=== PATIENT | female | born 1940 | race Caucasian/White ===

== ENCOUNTER → 2016-09-02 | Outpatient (CLI) | payer MEDICARE, BC ==
[~2016-09-02] MED LIST: AMLO5TAB96 PO; ESTR.3 PO; IBUP200C PO; LORA-392 PO; TAB-TAB; TIZA2TAB PO; TRAV0.006 EACH EYE; VITA100017 PO
[2016-09-02 16:28] LABS: BLOOD, URINE NEG (NEG); COMMENT (UR) CULT NOT INDICATED; CULTURE IF INDICATED CULT NOT INDICATED; GLUCOSE,URINE NEG (NEG); KETONE, URINE NEG (NEG); MUCUS URINE FEW /lpf (OCC); NITRITE,URINE NEG (NEG); PH, URINE 7.5 (5.0-8.5); SQUAMOUS EPITHELIAL CELL URINE <1 /hpf (0-5); URINE COLOR YELLOW (YELLW/STRAW)
[2016-09-02 16:35] LABS: AUTOMATED NEUTROPHIL # 3.3 TH/MM3 (1.8-7.7); BASOPHIL % 0.8 % (0.0-2.0); EOSINOPHIL # 0.1 TH/MM3 (0-0.4); EOSINOPHIL % 1.6 % (0.0-4.0); HEMATOCRIT 38.8 % (35.0-46.0); HEMO FLAGS DIFF FINAL; LYMPH % 30.5 % (9.0-44.0); LYMPHOCYTE # 1.7 TH/MM3 (1.0-4.8); MEAN CELL VOLUME 90.8 FL (80.0-100.0); MEAN CORPUSCULAR HEMOGLOBIN 30.7 PG (27.0-34.0); MEAN CORPUSCULAR HGB CONC 33.8 % (32.0-36.0); MONO % 8.4 % (0.0-8.0); NEUT % 58.7 % (16.0-70.0); PLATELET COUNT 212 TH/MM3 (150-450); RED BLOOD COUNT 4.27 MIL/MM3 (4.00-5.30); RED CELL DISTRIBUTION WIDTH 13.2 % (11.6-17.2); WHITE BLOOD COUNT 5.6 TH/MM3 (4.0-11.0)
[2016-09-02 16:52] LABS: ANION GAP 5 MEQ/L (5-15); BICARBONATE 34.8 MEQ/L (21.0-32.0); BLOOD UREA NITROGEN 16 MG/DL (7-18); CHLORIDE 98 MEQ/L (98-107); POTASSIUM 4.1 MEQ/L (3.5-5.1); RHEUMATOID FACTOR TRIGGER LESS THAN 10.0 IU/ML (0.0-14.9); SODIUM (NA) 138 MEQ/L (136-145)
[2016-09-02 17:41] LABS: ALKALINE PHOSPHATASE 91 U/L (45-117); ALT (GPT) 29 U/L (10-53); AST (GOT) 23 U/L (15-37); GLOMERULAR FILTRATION RATE 120 ML/MIN (>89); GLUCOSE,FASTING 85 MG/DL (74-99); HDL CHOLESTEROL 112.6 MG/DL (40.0-60.0); LDL CHOLESTEROL 78 MG/DL (0-99); TOTAL BILIRUBIN ADULT 0.5 MG/DL (0.2-1.0)
[2016-09-02 17:48] LABS: WESTERGREN SEDIMENTATION RATE 44 mm/hr (0-30)
== END ==
LOC: PLAB 11:35
PROVIDERS: ATTEND Internal Medicine
DX: M31.6 Other giant cell arteritis (principal); I10 Essential (primary) hypertension; E78.5 Hyperlipidemia, unspecified; E53.8 Deficiency of other specified B group vitamins; E55.9 Vitamin D deficiency, unspecified; M06.9 Rheumatoid arthritis, unspecified
CPT/HCPCS: 36415; 80053; 80061; 81001; 82306; 82607; 84443; 85025; 85652; 86430

== ENCOUNTER → 2017-08-04 | Outpatient (CLI) | payer MEDICARE, BC ==
[~2017-08-04] MED LIST changes: +AMLO5 PO; +CART1SOL EACH EYE; +LORA0.5T PO; +MELO7.5T27 PO; +TRAV0.00 EACH EYE
[2017-08-04 12:49] LABS: AUTOMATED NEUTROPHIL # 3.9 TH/MM3 (1.8-7.7); BASOPHIL # 0.1 TH/MM3 (0-0.2); BASOPHIL % 0.9 % (0.0-2.0); EOSINOPHIL # 0.1 TH/MM3 (0-0.4); EOSINOPHIL % 2.3 % (0.0-4.0); HEMATOCRIT 36.7 % (35.0-46.0); HEMO FLAGS DIFF FINAL; LYMPH % 24.2 % (9.0-44.0); LYMPHOCYTE # 1.5 TH/MM3 (1.0-4.8); MEAN CELL VOLUME 90.8 FL (80.0-100.0); MEAN CORPUSCULAR HEMOGLOBIN 30.5 PG (27.0-34.0); MEAN CORPUSCULAR HGB CONC 33.5 % (32.0-36.0); NEUT % 64.6 % (16.0-70.0); PLATELET COUNT 207 TH/MM3 (150-450); RED BLOOD COUNT 4.05 MIL/MM3 (4.00-5.30); RED CELL DISTRIBUTION WIDTH 13.8 % (11.6-17.2)
[2017-08-04 12:53] LABS: APTT (PATIENT) 23.9 SEC (24.3-30.1); INTERNATIONAL NORMALIZED RATIO 0.9 RATIO; PROTHROMBIN TIME - PATIENT 9.6 SEC (9.8-11.6)
[2017-08-04 13:18] LABS: ANION GAP 6 MEQ/L (5-15); AST (GOT) 24 U/L (15-37); BICARBONATE 31.4 MEQ/L (21.0-32.0); BLOOD UREA NITROGEN 15 MG/DL (7-18); CHLORIDE 97 MEQ/L (98-107); GLOMERULAR FILTRATION RATE 194 ML/MIN (>89); GLUCOSE,FASTING 85 MG/DL (74-99); POTASSIUM 4.4 MEQ/L (3.5-5.1); SODIUM (NA) 134 MEQ/L (136-145)
[2017-08-04 13:19] LABS: ALT (GPT) 25 U/L (10-53)
[2017-08-04 13:21] LABS: ALKALINE PHOSPHATASE 91 U/L (45-117); TOTAL BILIRUBIN ADULT 0.3 MG/DL (0.2-1.0)
[2017-08-04 13:23] LABS: WESTERGREN SEDIMENTATION RATE 36 mm/hr (0-30)
--- NOTE | 2017-08-04 13:38 | RADRPT ---
EXAM DATE/TIME: 08/04/2017 13:21 [facility] COMPARISON: No previous studies available for comparison. INDICATIONS : Evaluate for pneumothorax, pneumonia and communicable. Pre-op for total hip surgery. MEDICAL HISTORY : Hypertension. Carcinoma, breast. SURGICAL HISTORY : Mastectomy, right. Marino noreen. ENCOUNTER: Initial ACUITY: 1 day PAIN SCORE: 0/10 LOCATION: Bilateral chest FINDINGS: Marino noreen. The lungs are hyperinflated but clear. Hardware intact. The heart and pulmonary va scularity are normal. Scoliosis on the order of 85. Nipple shadow left base CONCLUSION: Extensive scoliosis compromising right lung item. Amrik Montes MD FACR on August 04, 2017 at 13:34 Board Certified Radiologist. This report was verified electronically.
[2017-08-04 14:59] LABS: BACTERIA, URINE RARE /hpf; BLOOD, URINE NEG (NEG); COMMENT (UR) CULT NOT INDICATED; CULTURE IF INDICATED CULT NOT INDICATED; GLUCOSE,URINE NEG (NEG); KETONE, URINE NEG (NEG); NITRITE,URINE NEG (NEG); SQUAMOUS EPITHELIAL CELL URINE 1 /hpf (0-5); URINE COLOR LIGHT-YELLOW (YELLW/STRAW)
--- NOTE | 2017-08-05 12:40 | EKG ---
Date Performed: 08/04/2017 Time Performed: 12:13:06 PTAGE: 76 years EKG: Sinus rhythm Possible left atrial abnormality Poor R wave progression - probable normal variant Septal ST-T fong es are nonspecific Borderline ECG PREVIOUS TRACING : 07/28/2013 22.55 Since previous tracing, no significant change noted DOCTOR: Eyal Méndez Interpretating Date/Time 08/05/2017 12:38:52
== END ==
LOC: CPRE 11:39
PROVIDERS: ATTEND Orthopaedic Surgery Sports Medicine
DX: Z01.810 Encounter for preprocedural cardiovascular examination (principal); Z01.811 Encounter for preprocedural respiratory examination; Z01.812 Encounter for preprocedural laboratory examination; Z01.818 Encounter for other preprocedural examination; M16.11 Unilateral primary osteoarthritis, right hip; R94.31 Abnormal electrocardiogram [ECG] [EKG]
CPT/HCPCS: 36415; 71020; 80053; 81001; 85025; 85610; 85652; 85730; 93005

== ENCOUNTER → 2017-08-25 | Day surgery (SDC) | payer MEDICARE, BC ==
[~2017-08-25] VITALS: Ht 137.2 cm; Wt 41.7 kg
[~2017-08-25] MED LIST changes: -AMLO5TAB96 PO; +CLINDAMYCIN 900 MG/NS 100 ML IV SCH; +DEXAMETHASONE SOD PHOS 20 MG/5 ML VIAL IV SCH; -ESTR.3 PO; +EXPAREL PERI-ARTICULAR INJECTION (TOTAL VOL. 60 ML) P-ARTICULR SCH; +GENTAMICIN SULFATE 80 MG/2 ML VIAL ONE; -IBUP200C PO; +LACTATED RINGER'S 1000 ML IV PRN; -LORA-392 PO; +METOPROLOL TARTRATE 25 MG TAB PO PRN; +SODIUM CHLORID 0.9% 500 ML IV PRN; +SODIUM CHLORIDE 0.9% IV SCH; -TAB-TAB; -TIZA2TAB PO; +TRANEXAMIC ACID IV SCH; +TRANEXAMIC PERI-ARTICULAR 3,000 MG/NS 100 ML P-ARTICULR SCH; -TRAV0.006 EACH EYE; +VANCOMYCIN 1000 MG/NS 250 ML (for <70 kg) IV SCH; -VITA100017 PO
[2017-08-25 06:10] VITALS: BP 155/86; PULSE 86; RESP 16; TEMP 98.5; O2SAT 99
== END | disposition home or self-care (01) ==
LOC: UNDOADMIN 05:26 → HSDI 05:26 → HSDC 05:26 → HSDI 05:26 → EDSTATUS 07:00
PROVIDERS: ATTEND Orthopaedic Surgery Sports Medicine
DX: M16.11 Unilateral primary osteoarthritis, right hip (principal); Z53.09 Procedure and treatment not carried out because of other contraindication
CPT/HCPCS: C9290; G0463; 99211; J1580

== ENCOUNTER → 2017-09-05 | Outpatient (CLI) | payer MEDICARE, BC ==
[~2017-09-05] MED LIST changes: +AMBI10TA PO; +ASPI81CH6 CHEW; -CLINDAMYCIN 900 MG/NS 100 ML IV SCH; +COMMODE 3-IN-11 MIS; -DEXAMETHASONE SOD PHOS 20 MG/5 ML VIAL IV SCH; -EXPAREL PERI-ARTICULAR INJECTION (TOTAL VOL. 60 ML) P-ARTICULR SCH; -GENTAMICIN SULFATE 80 MG/2 ML VIAL ONE; +HYDR-3288 PO; -LACTATED RINGER'S 1000 ML IV PRN; -METOPROLOL TARTRATE 25 MG TAB PO PRN; -SODIUM CHLORID 0.9% 500 ML IV PRN; -SODIUM CHLORIDE 0.9% IV SCH; -TRANEXAMIC ACID IV SCH; -TRANEXAMIC PERI-ARTICULAR 3,000 MG/NS 100 ML P-ARTICULR SCH; -VANCOMYCIN 1000 MG/NS 250 ML (for <70 kg) IV SCH
[2017-09-05 11:18] LABS: AUTOMATED NEUTROPHIL # 4.4 TH/MM3 (1.8-7.7); BASOPHIL # 0.1 TH/MM3 (0-0.2); BASOPHIL % 0.8 % (0.0-2.0); EOSINOPHIL # 0.1 TH/MM3 (0-0.4); EOSINOPHIL % 1.7 % (0.0-4.0); HEMATOCRIT 37.1 % (35.0-46.0); HEMOGLOBIN 12.2 GM/DL (11.6-15.3); LYMPH % 22.4 % (9.0-44.0); LYMPHOCYTE # 1.4 TH/MM3 (1.0-4.8); MEAN CELL VOLUME 91.5 FL (80.0-100.0); MEAN CORPUSCULAR HGB CONC 32.8 % (32.0-36.0); MEAN PLATELET VOLUME 10.1 FL (7.0-11.0); MONO % 7.3 % (0.0-8.0); MONOCYTE # 0.5 TH/MM3 (0-0.9); NEUT % 67.8 % (16.0-70.0); PLATELET COUNT 192 TH/MM3 (150-450); RED BLOOD COUNT 4.06 MIL/MM3 (4.00-5.30); RED CELL DISTRIBUTION WIDTH 13.8 % (11.6-17.2); WHITE BLOOD COUNT 6.5 TH/MM3 (4.0-11.0)
[2017-09-05 11:26] LABS: PROTHROMBIN TIME - PATIENT 9.8 SEC (9.8-11.6)
[2017-09-05 11:34] LABS: WESTERGREN SEDIMENTATION RATE 28 mm/hr (0-30)
[2017-09-05 11:53] LABS: ALBUMIN 3.6 GM/DL (3.4-5.0); AST (GOT) 23 U/L (15-37); BICARBONATE 32.1 MEQ/L (21.0-32.0); BLOOD UREA NITROGEN 13 MG/DL (7-18); CALCIUM 9.6 MG/DL (8.5-10.1); CHLORIDE 98 MEQ/L (98-107); CREATININE 0.32 MG/DL (0.50-1.00); GLOMERULAR FILTRATION RATE 201 ML/MIN (>89); GLUCOSE,FASTING 77 MG/DL (74-99); SODIUM (NA) 136 MEQ/L (136-145)
[2017-09-05 11:54] LABS: ALT (GPT) 25 U/L (10-53)
[2017-09-05 11:56] LABS: ALKALINE PHOSPHATASE 101 U/L (45-117); TOTAL BILIRUBIN ADULT 0.5 MG/DL (0.2-1.0); TOTAL PROTEIN 7.6 GM/DL (6.4-8.2)
[2017-09-05 12:33] LABS: BILIRUBIN, URINE NEG (NEG); BLOOD, URINE NEG (NEG); GLUCOSE,URINE NEG (NEG); KETONE, URINE NEG (NEG); MUCUS URINE FEW /lpf (OCC); NITRITE,URINE NEG (NEG); SQUAMOUS EPITHELIAL CELL URINE 2 /hpf (0-5); URINE COLOR LIGHT-YELLOW (YELLW/STRAW); URINE LEUKOCYTE ESTERASE NEG (NEG)
== END ==
LOC: CPRE 10:27
PROVIDERS: ATTEND Orthopaedic Surgery Sports Medicine
DX: Z01.812 Encounter for preprocedural laboratory examination (principal); Z01.818 Encounter for other preprocedural examination; M25.50 Pain in unspecified joint; M16.11 Unilateral primary osteoarthritis, right hip; Z96.60 Presence of unspecified orthopedic joint implant; Z79.01 Long term (current) use of anticoagulants
CPT/HCPCS: 36415; 80053; 81001; 85025; 85610; 85652; 85730

== ENCOUNTER 2017-09-17 10:17 | Inpatient (IN) | payer MEDICARE, BC ==
[~2017-09-17] VITALS: Ht 137.2 cm; Wt 42.5 kg
[~2017-09-17 10:17] MED LIST changes: -AMBI10TA PO; -ASPI81CH6 CHEW; -COMMODE 3-IN-11 MIS; -HYDR-3288 PO
[2017-09-17] MEDS ORDERED: LACTATED RINGER'S 1000 ML IV PRN (11:15)
[2017-09-17] MEDS ORDERED: METOPROLOL TARTRATE 25 MG TAB PO PRN (11:15)
[2017-09-17] MEDS ORDERED: SODIUM CHLORID 0.9% 500 ML IV PRN (11:15)
[2017-09-17] MEDS ORDERED: CHLORHEXIDINE GLUCONATE 4% SOLN 120 ML BTL TOPICAL SCH (11:15)
[2017-09-17] MEDS ORDERED: CLINDAMYCIN 900 MG/NS PREMIX 50 ML IV SCH (11:30)
[2017-09-17] MEDS ORDERED: VANCOMYCIN 1 GM/200 ML PREMIX ON-CALL IV SCH (11:30)
[2017-09-17] MEDS ORDERED: DEXAMETHASONE SOD PHOS 20 MG/5 ML VIAL IV SCH (11:30)
[2017-09-17] MEDS ORDERED: TRANEXAMIC ACID IV SCH (12:00)
[2017-09-17] MEDS ORDERED: LACTATED RINGER'S 1000 ML INJ 1,000 ML IV ONE (12:00)
[2017-09-17] MEDS ORDERED: PROPOFOL 200 MG/20 ML AMP IV ONE (12:00)
[2017-09-17] MEDS ORDERED: ROCURONIUM INJ 50 MG/5 ML SYRINGE IV PUSH ONE (12:00)
[2017-09-17] MEDS ORDERED: GLYCOPYRROLATE 1 MG/5 ML SYRINGE IV PUSH ONE (12:00)
[2017-09-17] MEDS ORDERED: PHENYLEPH/NS 1000 MCG/10 ML SYR IV ONE (12:00)
[2017-09-17] MEDS ORDERED: SODIUM CHLORIDE 0.9% IV SCH (12:00)
[2017-09-17] MEDS ORDERED: EXPAREL PERI-ARTICULAR INJECTION (TOTAL VOL. 60 ML) P-ARTICULR SCH ×2 (12:00)
[2017-09-17] MEDS ORDERED: NEOSTIGMINE 5 MG/5 ML SYRINGE IV PUSH ONE (12:00)
[2017-09-17] MEDS ORDERED: ONDANSETRON HCL 4 MG/2 ML VIAL IV ONE (12:00)
[2017-09-17] MEDS ORDERED: LIDOCAINE HCL 1% PF 5 ML SYRINGE OTHER ONE (12:00)
[2017-09-17] MEDS ORDERED: TRANEXAMIC PERI-ARTICULAR 3,000 MG/NS 100 ML P-ARTICULR SCH ×2 (12:00)
[2017-09-17] MEDS ORDERED: GENTAMICIN SULFATE 80 MG/2 ML VIAL ONE ×2 (13:49)
[2017-09-17] MEDS ORDERED: BISACODYL 10 MG SUPP RECTAL PRN (15:00)
[2017-09-17] MEDS ORDERED: ONDANSETRON HCL 4 MG/2 ML VIAL IVP PRN (15:00)
[2017-09-17] MEDS ORDERED: ZOLPIDEM TARTRATE 5 MG TAB PO PRN (15:00)
[2017-09-17] MEDS ORDERED: ACETAMINOPHEN/HYDROcodone 325 MG/10 MG TAB PO PRN (15:00)
[2017-09-17] MEDS ORDERED: diphenhydrAMINE HCL 50 MG/ML VIAL IV PUSH PRN (15:00)
[2017-09-17] MEDS ORDERED: HYDR-3288 PO (15:00)
[2017-09-17] MEDS ORDERED: Post-op Orders (for Pharmacy) XX ONE (15:00)
[2017-09-17] MEDS ORDERED: ASPI81CH6 CHEW (15:01)
[2017-09-17] MEDS ORDERED: DO NOT ADM ANY ANTICOAGULANT DRUGS PRN (17:22)
[2017-09-17] MEDS: SODIUM CHLOR 0.9% 1000 ML INJ 1,000 ML IV SCH (17:30)
[2017-09-17] MEDS ORDERED: *morphine SULFATE 4 MG/ML PERIprocedure ONLY ONE ×2 (17:35→17:56)
--- NOTE | 2017-09-17 17:43 | RADRPT ---
EXAM DATE/TIME: 09/17/2017 15:31 [facility] COMPARISON: No previous studies available for comparison. INDICATIONS : Right total hip arthroplasty. MEDICAL HISTORY : None. SURGICAL HISTORY : None. ENCOUNTER: Subsequent ACUITY: 1 day PAIN SCORE: Non-responsive. LOCATION: Right Hip FINDINGS: Multiple coned down views of the right hip and femur were obtained these images abdomen demonstrate t he patient is status post arthroplasty. The femoral acetabular components are intact and in normal al ignment. CONCLUSION: Expected postoperative changes status post arthroplasty. Jose Shrestha MD on September 17, 2017 at 17:39 Board Certified Radiologist. This report was verified electronically.
--- NOTE | 2017-09-17 17:55 | RADRPT ---
EXAM DATE/TIME: 09/17/2017 17:33 [facility] COMPARISON: No previous studies available for comparison. INDICATIONS : Status post total right hip arthroplasty. MEDICAL HISTORY : None. SURGICAL HISTORY : None. ENCOUNTER: Subsequent ACUITY: 1 day PAIN SCORE: Non-responsive. LOCATION: Right Hip FINDINGS: AP and crosstable lateral views of the right hip was obtained as well as an AP view of the pelvis. Th is demonstrates the patient status post right hip arthroplasty. The femoral and acetabular components are intact and in normal alignment. There is overlying soft tissue swelling and gas bubbles. There i s mild osteopenia. CONCLUSION: Expected postoperative change status post arthroplasty. Jose Shrestha MD on September 17, 2017 at 17:51 Board Certified Radiologist. This report was verified electronically.
--- NOTE | 2017-09-17 17:56 | PD.CONS ---
[facility] By Dr. Salcedo Reason for Consult Medical management Primary Care Physician Non-Staff Diagnoses: (1) Hypertension (2) Anxiety (3) Primary localized osteoarthrosis, pelvic region and thigh History of Present Illness 76 Y/O female with a medical history significant for HTN, anxiety, breast cancer and osteoarthritis admitted for right hip arthroplasty. Apparently the patient failed conservative measures. Patient is seen post operatively and most of the history obtained from the chart. She currently reports discomfort at the surgical site. No other complaints. Records reviewed extensively. She has active breast cancer and was seen by Oncologist recently who recommended chemo and radiation. Patient is choosing to deal with the hip replacement first. She was also considering natural measures to treat her breast cancer. No other active issues prior to Hospitalization. Review of Systems ROS Limitations: Clinical Condition Musculoskeletal: COMPLAINS OF: Joint pain Except as stated in HPI: all other systems reviewed are Neg Past Family Social History Allergies: Coded Allergies: diatrizoate meglumine (Verified Allergy, Severe, HIVES, 09/05/17) gadobenic acid (Verified Allergy, Severe, HIVES, 09/05/17) gadodiamide (Verified Allergy, Severe, HIVES, 09/05/17) gadoteridol (Verified Allergy, Severe, HIVES, 09/05/17) iodixanol (Verified Allergy, Severe, HIVES, 09/05/17) iohexol (Verified Allergy, Severe, HIVES, 09/05/17) penicillin G (Verified Allergy, Severe, Hives, 09/05/17) iodine (Verified Allergy, Mild, Hives, 09/05/17) potassium iodide (Verified Allergy, Mild, Hives, 09/05/17) povidone-iodine (Verified Allergy, Mild, Hives, 09/05/17) sodium iodide (Verified Allergy, Mild, Hives, 09/05/17) adhesive tape (Verified Allergy, Unknown, MUST USE PAPER TAPE, CAUSES REDNESS ALMOST INSTANTLY, 08/04/17) Past Medical History HTN, anxiety, breast cancer and osteoarthritis Past Surgical History breast biopsy lumpectomy Reported Medications Reported Meds & Active Scripts Active Aspirin Low Dose (Aspirin) 81 Mg Chew 81 Mg CHEW BID 30 Days Mclean (Hydrocodone-Acetaminophen) 7.5-325 mg Tab 1-2 Tab PO Q6H PRN Reported Meloxicam 7.5 Mg Tab 7.5 Mg PO DAILY Travatan Z Opth Drops (Travoprost) 0.004 % Soln 1 Drop EACH EYE HS Carteolol Opth Drops 1% Soln 1 Drop EACH EYE DAILY Norvasc (Amlodipine Besylate) 5 Mg Tab 5 Mg PO HS Lorazepam 0.5 Mg Tab 0.5 Mg PO DAILY PRN Family History Discussed. Noncontributory Social History No tobacco. Occasional alcohol. Physical Exam Vital Signs Vital Signs Date Time Temp Pulse Resp B/P (MAP) Pulse Ox O2 Delivery O2 Flow Rate FiO2 09/17/17 17:22 97.6 72 12 101/52 (68) 100 Nasal Cannula 4 09/17/17 11:15 97.6 78 20 153/81 (105) 99 Physical Exam GENERAL: This is a well-nourished, well-developed patient, in no apparent distress. SKIN: No rashes, ecchymoses or lesions. Cool and dry. HEAD: Atraumatic. Normocephalic. No temporal or scalp tenderness. EYES: Pupils equal round and reactive. Extraocular motions intact. No scleral icterus. No injection or drainage. ENT: Nose without bleeding, purulent drainage or septal hematoma. Throat without erythema, tonsillar hypertrophy or exudate. Uvula midline. Airway patent. NECK: Trachea midline. No JVD or lymphadenopathy. Supple, nontender, no meningeal signs. CARDIOVASCULAR: Regular rate and rhythm without murmurs, gallops, or rubs. RESPIRATORY: Clear to auscultation. Breath sounds equal bilaterally. No wheezes , rales, or rhonchi. GASTROINTESTINAL: Abdomen soft, non-tender, nondistended. No hepato-splenomegaly , or palpable masses. No guarding. MUSCULOSKELETAL: Extremities without clubbing, cyanosis, or edema. No joint tenderness, effusion, or edema noted. No calf tenderness. Negative Homans sign bilaterally. NEUROLOGICAL: Awake and alert. Cranial nerves II through XII intact. Motor and sensory grossly within normal limits. Five out of 5 muscle strength in all muscle groups. Normal speech. Imaging Last Impressions Hip and Pelvis X-Ray 09/17/17 0000 Signed Impressions: Service Date/Time: Sunday, September 17, 2017 17:33 - CONCLUSION: Expected postoperative change status post arthroplasty. Jose Shrestha MD Hip X-Ray 09/17/17 0000 Signed Impressions: Service Date/Time: Sunday, September 17, 2017 15:31 - CONCLUSION: Expected postoperative changes status post arthroplasty. Jose Shrestha MD Assessment and Plan Problem List: (1) S/P total hip arthroplasty ICD Code: Z96.649 - Presence of unspecified artificial hip joint Plan: Post op care per orthopedics pain control early mobilization as tolerated (2) Hypertension ICD Code: I10 - Essential (primary) hypertension Plan: Continue Amlodipine Monitor bp (3) Primary localized osteoarthrosis, pelvic region and thigh ICD Code: M16.10 - Unilateral primary osteoarthritis, unspecified hip (4) Anxiety ICD Code: F41.9 - Anxiety disorder, unspecified Plan: Ativan PRN (5) Glaucoma ICD Code: H40.9 - Unspecified glaucoma Plan: continue eye drops Problem Qualifiers (1) S/P total hip arthroplasty: Qualified Codes: Z96.641 - Presence of right artificial hip joint Yenni Amin MD Sep 17, 2017 17:56
[2017-09-17 19:00] VITALS: BP 135/67; PULSE 72; RESP 18; TEMP 96.7; O2SAT 99
[2017-09-17] MEDS: amLODIPine BESYLATE 5 MG TAB PO SCH (21:20)
[2017-09-17] MEDS: [UNRECOGNIZED DRUG - OTHER] EACH EYE SCH (21:22)
[2017-09-17] MEDS: LATANOPROST 0.005% OPHT SOLN 2.5 ML BTL EACH EYE SCH (21:22)
[2017-09-17] MEDS: LORazepam 0.5 MG TAB PO PRN (21:34)
[2017-09-18] VITALS (7 sets, daily range): BP systolic 99–141; BP diastolic 51–72; PULSE 74–101; RESP 17–18; TEMP 96.8–98.8; O2SAT 90–98
[2017-09-18] MEDS: MORPHINE SULFATE 4 MG/ML INJ IV PUSH PRN ×2 (01:58→06:42)
[2017-09-18] MEDS: SODIUM CHLOR 0.9% 1000 ML INJ 1,000 ML IV SCH ×3 (02:03→21:30)
[2017-09-18 06:57] LABS: HEMATOCRIT 23.7 % (35.0-46.0); HEMOGLOBIN 8.1 GM/DL (11.6-15.3); MEAN CELL VOLUME 90.2 FL (80.0-100.0); MEAN CORPUSCULAR HEMOGLOBIN 30.7 PG (27.0-34.0); MEAN CORPUSCULAR HGB CONC 34.1 % (32.0-36.0); PLATELET COUNT 144 TH/MM3 (150-450); RED BLOOD COUNT 2.63 MIL/MM3 (4.00-5.30); RED CELL DISTRIBUTION WIDTH 13.7 % (11.6-17.2); WHITE BLOOD COUNT 8.2 TH/MM3 (4.0-11.0)
[2017-09-18 07:23] LABS: BICARBONATE 28.5 MEQ/L (21.0-32.0); CALCIUM 8.6 MG/DL (8.5-10.1); CREATININE 0.34 MG/DL (0.50-1.00)
--- NOTE | 2017-09-18 08:06 | PD.ORT.PN ---
Subjective Post Op Day #: 1 Subjective Remarks still painful. Objective Vitals Vital Signs Date Time Temp Pulse Resp B/P (MAP) Pulse Ox O2 Delivery O2 Flow Rate FiO2 09/18/17 06:26 98.6 87 18 141/71 (94) 98 09/18/17 00:10 96.8 86 17 111/64 (80) 97 09/17/17 19:00 96.7 72 18 135/67 (89) 99 09/17/17 18:45 97.6 70 12 125/58 (80) 100 Nasal Cannula 2 09/17/17 18:30 73 12 123/58 (79) 100 Nasal Cannula 2 09/17/17 18:15 71 12 123/56 (78) 100 Nasal Cannula 2 09/17/17 18:00 70 12 124/58 (80) 100 Nasal Cannula 4 09/17/17 17:45 72 12 125/58 (80) 100 Nasal Cannula 4 09/17/17 17:30 72 12 110/55 (73) 100 Nasal Cannula 4 09/17/17 17:22 97.6 72 12 101/52 (68) 100 Nasal Cannula 4 09/17/17 11:15 97.6 78 20 153/81 (105) 99 I/O 09/17/17 09/17/17 09/17/17 09/18/17 09/18/17 09/18/17 07:00 15:00 23:00 07:00 15:00 23:00 Intake Total 1940 ml 2722 ml Output Total 300 ml Balance 1640 ml 2722 ml Intake Oral 240 ml 360 ml IV Total 2362 ml Other 1700 ml Output Estimated Blood Loss 300 ml # Voids 2 2 1 # Bowel Movements 0 0 Result Diagram: 09/18/17 0558 09/18/17 0558 Objective Remarks in bed, nad, daughter in room dressing c/d/i thigh soft neg homans nvi Assessment & Plan Ortho Post Op Day #: 1 Problem List: Assessment and Plan s/p R ANALY anterior approach wbat ok to maintain dressing unless saturated lovenox, d/c on asa81 anemia - monitor d/c planning home with hhc and pt - possibly Friday or Friday f/up dr. fernandez 2 weeks Ketan Sadler Sep 18, 2017 08:06
--- NOTE | 2017-09-18 08:08 | HHI.DCPOC ---
Discharge Care Plan Diagnosis: (1) Primary localized osteoarthrosis, pelvic region and thigh Your Health Problems Are: Difficulty with ADL Goals to Promote Your Health * To prevent worsening of your condition and complications * To maintain your health at the optimal level Directions to Meet Your Goals Take your medications as prescribed Follow your dietary instruction Follow activity as directed Keep your appointments as scheduled Take your immunizations and boosters as scheduled If your symptoms worsen call your PCP, if no PCP go to Urgent Care Center or Emergency Room Smoking is Dangerous to Your Health. Avoid second hand smoke Call the 24-hour hour crisis hotline for domestic abuse at Ketan Sadler Sep 18, 2017 08:08
--- NOTE | 2017-09-18 08:09 | HHI.FF ---
Face to Face Verification Diagnosis: (1) Primary localized osteoarthrosis, pelvic region and thigh Physical Therapy Gait training, Safety evaluation, Transfer training, bed to chair Hip: Total hip, Protocol: Right Right LE Weight Bearing: WB as tolerated Nursing RN: 3 days/week x 2 weeks Nursing: Dressing changes Dressing Changes: Daily dressing change Additional Instructions ok to maintain dressing unless saturated I have seen patient Malaika Morelos on 09/18/17. My clinical findings support the need for the requested home health care services because: Limited ability to care for self High risk of falls I certify that my clinical findings support that this patient is homebound because: Post-op weakness Unsteady gait/balance Ketan Sadler Sep 18, 2017 08:09
[2017-09-18] MEDS ORDERED: COMMODE 3-IN-11 MIS (08:10)
--- NOTE | 2017-09-18 09:31 | MP ---
cc: SUJATA ESPOSITO M.D. DATE OF SURGERY 09/17/2017 PREOPERATIVE DIAGNOSIS Right hip osteoarthritis POSTOPERATIVE DIAGNOSES Right hip osteoarthritis PROCEDURE Right total hip arthroplasty SURGEON Dr. Sujata Esposito PROP[employer]UALTY INSURANCE AGENT SIMBA Mims ANESTHESIA General ESTIMATED BLOOD LOSS 100 cc COMPLICATIONS None IMPLANTS USED DePuy Corail size 11 Press-Fit standard offset femoral stem, size 50 Malcom Gription cup size 32 mm, highly cross-linked polyethylene neutral liner, size 32 mm cobalt chrome head, +1 neck. JUSTIFICATION This patient is a 76-year-old female with a history of severe osteoarthritis involving the right hip. She has severe disabling pain with standing, walking, ambulation, weight-bearing activities and severe pain at rest. She has failed greater than three months of nonoperative conservative treatment to include medication therapy, injections, ambulatory assisted aids, home exercise size program, activity modification. The patient is not overweight. X-ray of the right hip reveal severe end-stage osteoarthritis with [id number] joint space narrowing and subchondral sclerosis, subchondral cyst, osteophyte formation, superior subluxation. The patient was counseled as to the risks, benefits and alternative to a total hip arthroplasty. The risks were discussed which include, but are not limited to anesthesia, bleeding, infection, damage to nerves, blood vessels, pain, stiffness, fracture-dislocation, leg length discrepancies, blood clots, pulmonary embolism and even . The patient's pain is severe. She favored the benefits over the risks. She did wish to proceed with surgery. PROCEDURE IN DETAIL A written consent was obtained. The patient identified by name, taken to the operating room, placed supine position and general anesthesia was administered, as well as 900 mg of IV clindamycin and 1 gram of IV vancomycin. She does have a penicillin allergy. The right and left feet were placed in the padded traction boots. The right hip and right lower tree prepped and draped using Isopropyl alcohol, Hibiclens solution and Chloraprep solution. After a time-out was performed, a longitudinal incision made over the anterolateral aspect of the right hip. The fascial layer was incised. Dissection was carried over the tensor fascia violeta and beneath rectus femoris to allow exposure of the anterior hip capsule. Capsulotomy incision was performed and the capsule was incised and tagged with #2 FiberWire suture. An oscillating saw was used to perform a femoral neck cut. The osteophytic femoral head neck component was removed. A 10 blade scalpel was used to excise the labrum. Sequential reaming began at size 43 and was carried through to size 50. Subsequently, a Malcom Gription size 50 cup was implanted in approximately 45 degrees of abduction and 10 degrees of anteversion. I felt as though I needed to supplement the Press-Fit cup with additional screw placement. At this point, a 30 mm screw and a 25 mm screw x 6.5 mm was placed in the posterior superior quadrant. There was adequate fixation and purchase after implantation of screws. The cup stability was tested manually and noted to have good stability. At this point, the neutral liner was placed within the cup. The liner was impacted in place and tested for stability. At this point, attention was turned to the femur where the leg was externally rotated, extended and adducted. The capsule was released off the undersurface of greater trochanter to allow for elevation and lateralization of the femur. A box cutting osteotome was used to gain entrance into the intramedullary canal of the femur. This was followed by a canal finder and sequential broaching up to size 11. A calcar planer was used to plane the calcar. Trial head and neck combinations were evaluated and final components implanted with the current components. The leg could achieve external rotation of 70 degrees and extension all the way down to the ground without evidence of anterior instability or impingement. Fluoroscopic imaging showed appropriate implantation of components. The surgical wound was thoroughly irrigated with sterile saline pulse lavage solution. The capsule layer was closed primarily with a combination of #2 FiberWire suture, as well as #1 Vicryl suture. The fascial layer was closed with a running #1 Vicryl suture, subcutaneous layer with 2-0 Vicryl suture, skin was closed with Dermabond. Sterile dressings were applied. The patient tolerated the procedure well with no intraoperative complications noted. Jose Sadler, Physician Pearl Maker Certified, was present during the entire procedure to include patient positioning and the procedure itself. The medical necessity of a physician seismic survey assistant was indicated in this case due to the complexity of the procedure. He assisted with appropriate manipulation of the leg and also retraction of muscle, tendon, bone and neurovascular structures. He assisted with preparation of the bone and also implantation of the prosthetic replacement. MD MESERET Arellano/EMELINA /5:02 PM /9:13 AM
[2017-09-18] MEDS: ACETAMINOPHEN/HYDROcodone 325 MG/10 MG TAB PO PRN ×3 (10:07→23:48)
--- NOTE | 2017-09-18 14:32 | HHI.PR ---
Subjective Remarks Patient reports feeling very tired. Sore at surgical site. No other complaints. Objective Vitals Vital Signs Date Time Temp Pulse Resp B/P (MAP) Pulse Ox O2 Delivery O2 Flow Rate FiO2 09/18/17 11:57 98.8 99 17 123/63 (83) 90 09/18/17 08:00 98.4 101 17 115/57 (76) 92 09/18/17 06:26 98.6 87 18 141/71 (94) 98 09/18/17 00:10 96.8 86 17 111/64 (80) 97 09/17/17 19:00 96.7 72 18 135/67 (89) 99 09/17/17 18:45 97.6 70 12 125/58 (80) 100 Nasal Cannula 2 09/17/17 18:30 73 12 123/58 (79) 100 Nasal Cannula 2 09/17/17 18:15 71 12 123/56 (78) 100 Nasal Cannula 2 09/17/17 18:00 70 12 124/58 (80) 100 Nasal Cannula 4 09/17/17 17:45 72 12 125/58 (80) 100 Nasal Cannula 4 09/17/17 17:30 72 12 110/55 (73) 100 Nasal Cannula 4 09/17/17 17:22 97.6 72 12 101/52 (68) 100 Nasal Cannula 4 I/O 09/17/17 09/17/17 09/17/17 09/18/17 09/18/17 09/18/17 07:00 15:00 23:00 07:00 15:00 23:00 Intake Total 1940 ml 2722 ml 100 ml Output Total 300 ml Balance 1640 ml 2722 ml 100 ml Intake Oral 240 ml 360 ml IV Total 2362 ml 100 ml Other 1700 ml Output Estimated Blood Loss 300 ml # Voids 2 2 1 # Bowel Movements 0 0 Result Diagram: 09/18/1758 09/18/17 0558 Objective Remarks GENERAL: No acute distress. CARDIOVASCULAR: Regular rate and rhythm. RESPIRATORY: No accessory muscle use. Clear to auscultation. Breath sounds equal bilaterally. GASTROINTESTINAL: Abdomen soft, non-tender, nondistended. MUSCULOSKELETAL: Right hip postop dressing mostly intact. A spec of serosanguineous drainage at the center. Right hip with some postsurgical swelling. Neurovascularly intact distally. NEUROLOGICAL: Awake and alert. No obvious cranial nerve deficits. Motor grossly within normal limits. Five out of 5 muscle strength in the arms and legs. Normal speech. PSYCHIATRIC: Appropriate mood and affect; insight and judgment normal. A/P Problem List: (1) S/P total hip arthroplasty ICD Code: Z96.649 - Presence of unspecified artificial hip joint Plan: Post op care per Orthopedics. (2) Hypertension ICD Code: I10 - Essential (primary) hypertension Plan: Continue Amlodipine. (3) Anxiety ICD Code: F41.9 - Anxiety disorder, unspecified Plan: Continue Ativan PRN. All questions answered to ease anxiety about Hospital stay. (4) Primary localized osteoarthrosis, pelvic region and thigh ICD Code: M16.10 - Unilateral primary osteoarthritis, unspecified hip (5) Anemia ICD Code: D64.9 - Anemia, unspecified Status: Acute Plan: Probably secondary to acute blood loss. 4 points drop in Hgb. Will repeat H&H today. Monitor closely. (6) Glaucoma ICD Code: H40.9 - Unspecified glaucoma (7) Breast cancer ICD Code: C50.919 - Malignant neoplasm of unspecified site of unspecified female breast Plan: DW patient and her daughter. They indicated she plans to return to Oncologist for treatment after she recovers. Encouraged the patient to make follow up appointment. Problem Qualifiers (1) S/P total hip arthroplasty: Qualified Codes: Z96.641 - Presence of right artificial hip joint (2) Anemia: Qualified Codes: D64.9 - Anemia, unspecified Yenni Amin MD Sep 18, 2017 14:32
[2017-09-18 14:59] LABS: HEMATOCRIT 26.3 % (35.0-46.0); HEMOGLOBIN 8.7 GM/DL (11.6-15.3); MEAN CELL VOLUME 91.3 FL (80.0-100.0); MEAN CORPUSCULAR HEMOGLOBIN 30.1 PG (27.0-34.0); MEAN PLATELET VOLUME 9.4 FL (7.0-11.0); PLATELET COUNT 164 TH/MM3 (150-450); RED BLOOD COUNT 2.88 MIL/MM3 (4.00-5.30); RED CELL DISTRIBUTION WIDTH 13.9 % (11.6-17.2); WHITE BLOOD COUNT 10.5 TH/MM3 (4.0-11.0)
[2017-09-18] MEDS: ENOXAPARIN SODIUM 30 MG/0.3 ML SYRINGE SQ SCH (16:31)
[2017-09-18] MEDS: LATANOPROST 0.005% OPHT SOLN 2.5 ML BTL EACH EYE SCH (21:00)
[2017-09-18] MEDS: amLODIPine BESYLATE 5 MG TAB PO SCH (21:28)
[2017-09-18] MEDS: MULTIVITAMINS/MINERALS THERAPEUTIC TAB PO SCH (21:28)
[2017-09-18] MEDS: DOCUSATE SODIUM 100 MG CAP PO SCH (21:28)
[2017-09-18] MEDS: LORazepam 0.5 MG TAB PO PRN (23:48)
[2017-09-19 08:00] VITALS: BP 109/68; PULSE 85; RESP 17; TEMP 97.9; O2SAT 93
[2017-09-19] MEDS: SODIUM CHLOR 0.9% 1000 ML INJ 1,000 ML IV SCH ×2 (08:00→17:53)
[2017-09-19] MEDS: DOCUSATE SODIUM 100 MG CAP PO SCH ×2 (08:20→21:59)
[2017-09-19 08:21] LABS: HEMATOCRIT 25.7 % (35.0-46.0); HEMOGLOBIN 8.5 GM/DL (11.6-15.3); MEAN CELL VOLUME 90.9 FL (80.0-100.0); MEAN PLATELET VOLUME 9.9 FL (7.0-11.0); PLATELET COUNT 138 TH/MM3 (150-450); RED BLOOD COUNT 2.83 MIL/MM3 (4.00-5.30); RED CELL DISTRIBUTION WIDTH 14.1 % (11.6-17.2); WHITE BLOOD COUNT 13.1 TH/MM3 (4.0-11.0)
[2017-09-19] MEDS: MULTIVITAMINS/MINERALS THERAPEUTIC TAB PO SCH ×2 (08:21→22:00)
[2017-09-19] MEDS: ACETAMINOPHEN/HYDROcodone 325 MG/10 MG TAB PO PRN ×4 (08:21→22:00)
[2017-09-19] MEDS: [UNRECOGNIZED DRUG - OTHER] EACH EYE SCH (08:23)
[2017-09-19 08:46] LABS: BICARBONATE 31.2 MEQ/L (21.0-32.0); CREATININE 0.37 MG/DL (0.50-1.00)
--- NOTE | 2017-09-19 09:28 | PD.ORT.PN ---
Subjective Post Op Day #: 2 Subjective Remarks still painful, but slowly improving. c/o knee pain. Objective Vitals Vital Signs Date Time Temp Pulse Resp B/P (MAP) Pulse Ox O2 Delivery O2 Flow Rate FiO2 09/19/17 08:00 97.9 85 17 109/68 (82) 93 09/19/17 06:58 Room Air 09/19/17 00:32 19 09/18/17 23:52 97.4 100 18 141/72 (95) 95 09/18/17 22:55 Room Air 09/18/17 20:32 98.2 74 17 115/65 (82) 96 09/18/17 16:00 98.3 98 17 99/51 (67) 93 09/18/17 11:57 98.8 99 17 123/63 (83) 90 I/O 09/18/17 09/18/17 09/18/17 09/19/17 09/19/17 09/19/17 07:00 15:00 23:00 07:00 15:00 23:00 Intake Total 2722 ml 580 ml 480 ml 480 ml Balance 2722 ml 580 ml 480 ml 480 ml Intake Oral 360 ml 480 ml 480 ml 480 ml IV Total 2362 ml 100 ml # Voids 1 2 3 2 # Bowel Movements 0 0 0 0 Result Diagram: 09/19/17 0748 09/19/17 0748 Objective Remarks in chair, nad, daughter in room dressing intact. small area of blood on mid dressing thigh soft neg homans nvi mild R knee swelling slight discomfort with flexion ROM 0-110 Assessment & Plan Ortho Post Op Day #: 2 Problem List: Assessment and Plan s/p R ANALY anterior approach POD#2 wbat ok to maintain dressing unless saturated R knee pain with mild swelling - xray R knee ordered lovenox, d/c on asa81 anemia stable - monitor d/c planning to snf [id number] signed f/up dr. fernandez 2 weeks Ketan Sadler Sep 19, 2017 09:28
--- NOTE | 2017-09-19 11:16 | RADRPT ---
EXAM DATE/TIME: 09/19/2017 10:05 [facility] COMPARISON: No previous studies available for comparison. INDICATIONS : Right knee pain. MEDICAL HISTORY : Hypertension. Carcinoma, breast. SURGICAL HISTORY : Mastectomy, right. Marino noreen. Total hip replacement on the right side. ENCOUNTER: Subsequent ACUITY: 3 days PAIN SCORE: 8/10 LOCATION: Right Knee. FINDINGS: A limited two-view examination of the right knee was obtained and demonstrates diffuse soft tissue pr ominence. There is mild osteopenia normal alignment. Chondrocalcinosis is noted in the medial and lat eral compartments. There is no acute fracture. CONCLUSION: 1. Diffuse soft tissue swelling 2. Osteopenia and mild degenerative change. Jose Shrestha MD on September 19, 2017 at 11:12 Board Certified Radiologist. This report was verified electronically.
[2017-09-19 12:00] VITALS: BP 102/55; PULSE 105; RESP 17; TEMP 98; O2SAT 92
--- NOTE | 2017-09-19 12:27 | HHI.PR ---
Subjective Remarks Patient reports she is feeling better today. No shortness of breath, lightheadedness, or heart palpitations. She was hoping to go home but admitted that she needs more assistance and is planning to go to rehabilitation. Objective Vitals Vital Signs Date Time Temp Pulse Resp B/P (MAP) Pulse Ox O2 Delivery O2 Flow Rate FiO2 09/19/17 08:00 97.9 85 17 109/68 (82) 93 09/19/17 06:58 Room Air 09/19/17 00:32 19 09/18/17 23:52 97.4 100 18 141/72 (95) 95 09/18/17 22:55 Room Air 09/18/17 20:32 98.2 74 17 115/65 (82) 96 09/18/17 16:00 98.3 98 17 99/51 (67) 93 I/O 09/18/17 09/18/17 09/18/17 09/19/17 09/19/17 09/19/17 07:00 15:00 23:00 07:00 15:00 23:00 Intake Total 2722 ml 580 ml 480 ml 480 ml Balance 2722 ml 580 ml 480 ml 480 ml Intake Oral 360 ml 480 ml 480 ml 480 ml IV Total 2362 ml 100 ml # Voids 1 2 3 2 # Bowel Movements 0 0 0 0 Result Diagram: 09/19/17 0748 09/19/17 0748 Objective Remarks GENERAL: No acute distress. CARDIOVASCULAR: Regular rate and rhythm. RESPIRATORY: No accessory muscle use. Clear to auscultation. Breath sounds equal bilaterally. GASTROINTESTINAL: Abdomen soft, non-tender, nondistended. MUSCULOSKELETAL: Right hip postop dressing mostly intact. A spec of serosanguineous drainage at the center. Right hip with some postsurgical swelling. Neurovascularly intact distally. NEUROLOGICAL: Awake and alert. No obvious cranial nerve deficits. Motor grossly within normal limits. Five out of 5 muscle strength in the arms and legs. Normal speech. PSYCHIATRIC: Appropriate mood and affect; insight and judgment normal. A/P Problem List: (1) S/P total hip arthroplasty ICD Code: Z96.649 - Presence of unspecified artificial hip joint Plan: Post op care per Orthopedics. (2) Hypertension ICD Code: I10 - Essential (primary) hypertension Plan: Continue Amlodipine. (3) Anxiety ICD Code: F41.9 - Anxiety disorder, unspecified Plan: Continue Ativan PRN. All questions answered to ease anxiety about Hospital stay. (4) Primary localized osteoarthrosis, pelvic region and thigh ICD Code: M16.10 - Unilateral primary osteoarthritis, unspecified hip (5) Anemia ICD Code: D64.9 - Anemia, unspecified Status: Acute Plan: Probably secondary to acute blood loss. Repeat H&H improving. Advised outpatient follow up. (6) Glaucoma ICD Code: H40.9 - Unspecified glaucoma (7) Breast cancer ICD Code: C50.919 - Malignant neoplasm of unspecified site of unspecified female breast Plan: DW patient and her daughter. They indicated she plans to return to Oncologist for treatment after she recovers. Encouraged the patient to make follow up appointment. Discharge Planning Hospitalist clear for discharge. Problem Qualifiers (1) S/P total hip arthroplasty: Qualified Codes: Z96.641 - Presence of right artificial hip joint (2) Anemia: Qualified Codes: D64.9 - Anemia, unspecified Yenni Amin MD Sep 19, 2017 12:27
[2017-09-19 16:00] VITALS: BP 113/59; PULSE 96; RESP 17; TEMP 98.1; O2SAT 94
[2017-09-19] MEDS: ENOXAPARIN SODIUM 30 MG/0.3 ML SYRINGE SQ SCH (16:26)
[2017-09-19 20:00] VITALS: BP 114/58; PULSE 99; RESP 16; TEMP 99.3; O2SAT 96
[2017-09-19] MEDS: LATANOPROST 0.005% OPHT SOLN 2.5 ML BTL EACH EYE SCH (21:00)
[2017-09-19] MEDS: CARTEOLOL 1% EACH EYE SCH (21:59)
[2017-09-19] MEDS: amLODIPine BESYLATE 5 MG TAB PO SCH (22:00)
[2017-09-20] VITALS: BP 133/68; PULSE 89; RESP 17; TEMP 99; O2SAT 96
[2017-09-20] MEDS: SODIUM CHLOR 0.9% 1000 ML INJ 1,000 ML IV SCH ×2 (03:01→10:23)
[2017-09-20 07:42] VITALS: BP 144/89; PULSE 115; RESP 18; TEMP 100.5; O2SAT 92
[2017-09-20] MEDS: DOCUSATE SODIUM 100 MG CAP PO SCH (08:31)
[2017-09-20] MEDS: MULTIVITAMINS/MINERALS THERAPEUTIC TAB PO SCH (08:31)
[2017-09-20] MEDS: ACETAMINOPHEN/HYDROcodone 325 MG/10 MG TAB PO PRN ×2 (08:32→15:58)
[2017-09-20] MEDS: CARTEOLOL 1% EACH EYE SCH (08:42)
[2017-09-20 09:43] VITALS: TEMP 98
--- NOTE | 2017-09-20 09:49 | PD.ORT.PN ---
Subjective Post Op Day #: 3 Subjective Remarks Patient is OOB in chair with minimal pain to the right knee. Moderate pain to the right hip. Patient ambulatory. Denies CP, SOB, or tingling and numbness into the RLE. Objective Vitals Vital Signs Date Time Temp Pulse Resp B/P (MAP) Pulse Ox O2 Delivery O2 Flow Rate FiO2 09/20/17 08:42 Room Air 09/20/17 07:42 100.5 115 18 144/89 (107) 92 09/20/17 00:00 99.0 89 17 133/68 (89) 96 09/19/17 23:41 Room Air 09/19/17 22:47 18 09/19/17 20:00 99.3 99 16 114/58 (76) 96 09/19/17 16:00 98.1 96 17 113/59 (77) 94 09/19/17 12:00 98.0 105 17 102/55 (71) 92 I/O 09/19/17 09/19/17 09/19/17 09/20/17 09/20/17 09/20/17 07:00 15:00 23:00 07:00 15:00 23:00 Intake Total 480 ml 480 ml 720 ml 480 ml Balance 480 ml 480 ml 720 ml 480 ml Intake Oral 480 ml 480 ml 720 ml 480 ml # Voids 2 2 2 1 # Bowel Movements 0 0 1 Result Diagram: 09/19/17 0748 09/19/17 0748 Objective Remarks Last 48 hours Impressions Knee X-Ray 09/19/17 0000 Signed Impressions: Service Date/Time: Tuesday, September 19, 2017 10:05 - CONCLUSION: 1. Diffuse soft tissue swelling 2. Osteopenia and mild degenerative change. Jose Shrestha MD in chair, nad dressing intact. small area of blood on mid dressing thigh soft neg homans nvi mild R knee swelling, improving Assessment & Plan Ortho Post Op Day #: 3 Problem List: Assessment and Plan s/p R ANALY anterior approach POD#3 wbat ok to maintain dressing unless saturated R knee pain with mild swelling - xray R knee ordered and reviewed. + soft tissue swelling with no fracture. lovenox, d/c on asa81 anemia stable - monitor d/c planning to snf. Stable for d/c today per ortho [id number] signed f/up dr. fernandez 2 weeks Salazar Slaughter Sep 20, 2017 09:49
[2017-09-20] MEDS ORDERED: BISACODYL EC 5 MG TABEC PO SCH (11:00)
[2017-09-20] MEDS ORDERED: LACTULOSE SYRUP 20 GM/30 ML CUP PO SCH (11:00)
[2017-09-20 11:28] VITALS: BP 108/56; PULSE 93; RESP 19; TEMP 97.9; O2SAT 94
[2017-09-20] MEDS: LORazepam 0.5 MG TAB PO PRN (12:41)
[2017-09-20] MEDS: ENOXAPARIN SODIUM 30 MG/0.3 ML SYRINGE SQ SCH (16:00)
== END 2017-09-20 16:23 | DRG 470 ==
LOC: HSDI 10:17 → N06B 18:52
PROVIDERS: ADMIT Orthopaedic Surgery Sports Medicine; ATTEND Orthopaedic Surgery Sports Medicine
PROC: 0SR902Z Replacement of Right Hip Joint with Metal on Polyethylene Synthetic Substitute, Open Approach (ICD-10-PCS; principal; 2017-09-17 15:00)
DX: M16.11 Unilateral primary osteoarthritis, right hip (principal); C50.919 Malignant neoplasm of unspecified site of unspecified female breast; D64.9 Anemia, unspecified; I10 Essential (primary) hypertension; F41.9 Anxiety disorder, unspecified; Z88.0 Allergy status to penicillin; H40.9 Unspecified glaucoma; M25.561 Pain in right knee
CPT/HCPCS: 73502; 73560; 76000; 80048; 85027; 86850; 86900; 86901; 94150; C1776; C9290; J0690; J1100; J1580; J1650; J2270; J2370; J2405; J2710; J3010; J3370; J7030; J7120

== ENCOUNTER 2017-09-23 13:31 | Inpatient (IN) | payer MEDICARE, BC ==
[~2017-09-23] VITALS: Ht 137.2 cm; Wt 42.0 kg
[~2017-09-23 13:31] MED LIST changes: +ASPI81CH6 CHEW; +COMMODE 3-IN-11 MIS; +HYDR-3288 PO; -MELO7.5T27 PO
[2017-09-23 13:41] VITALS: BP 135/68; PULSE 92; RESP 18; TEMP 97.8; O2SAT 99
--- NOTE | 2017-09-23 13:51 | PD ---
HPI Chief Complaint: Hip Injury Time Seen by Provider: 13:47 Travel History International Travel<30 days: No Contact w/Intl Traveler<30days: No Traveled to known affect area: No History of Present Illness HPI 76-year-old female here with right hip pain. She underwent total hip arthroplasty on September 17. Currently residing at [facility]. She reports that yesterday an x-ray of the right hip was performed revealing a hip dislocation and she was sent here. She reports that she has had soreness and pain in her hip since the surgery but nothing acute. She denies any acute injury. She reports that she has been doing physical therapy, most recently yesterday. No other complaints. PFSH Past Medical History Arthritis: Yes Asthma: Yes Anxiety: Yes Depression: Yes Heart Rhythm Problems: No Cancer: Yes (RIGHT BREAST X 2) Cardiac Catheterization: No Cardiovascular Problems: Yes High Cholesterol: No Chest Pain: Yes Congestive Heart Failure: No COPD: No Cerebrovascular Accident: No Diabetes: No Diminished Hearing: No Diverticulitis: Yes Endocrine: No Gastrointestinal Disorders: Yes (ULCERATIVE COLITIS, DIVERTICULITIS) GERD: No Genitourinary: No Hepatitis: No Hiatal Hernia: No Hypertension: Yes Immune Disorder: No Implanted Vascular Access Dvce: Yes Kidney Stones: No Musculoskeletal: Yes (SCOLIOSIS, arthritis) Neurologic: No Psychiatric: No Reproductive: No Respiratory: Yes Immunizations Current: Yes Migraines: No Myocardial Infarction: Yes Renal Failure: No Seizures: No Sleep Apnea: No Thyroid Disease: No Ulcer: No ?: Not Past Surgical History Abdominal Surgery: No AICD: No Appendectomy: Yes Arteriovenous Shunt: No Body Medical Devices: SPINE RODS Cardiac Surgery: No Coronary Artery Bypass Graft: No Ear Surgery: No Endocrine Surgery: No Eye Surgery: No Genitourinary Surgery: No Gynecologic Surgery: Yes (BREAST RIGHT LUMPECTOMY, right mastectomy 06/27/2017) Hysterectomy: Yes Insulin Pump: No Joint Replacement: No Oral Surgery: No Pacemaker: No Thoracic Surgery: No Other Surgery: Yes (RHINOPLASTY) Social History Alcohol Use: Yes (WINE A FEW TIMES A WEEK) Tobacco Use: No Substance Use: No Allergies-Medications (Allergen,Severity, Reaction): Coded Allergies: diatrizoate meglumine (Verified Allergy, Severe, HIVES, 09/05/17) gadobenic acid (Verified Allergy, Severe, HIVES, 09/05/17) gadodiamide (Verified Allergy, Severe, HIVES, 09/05/17) gadoteridol (Verified Allergy, Severe, HIVES, 09/05/17) iodixanol (Verified Allergy, Severe, HIVES, 09/05/17) iohexol (Verified Allergy, Severe, HIVES, 09/05/17) penicillin G (Verified Allergy, Severe, Hives, 09/05/17) iodine (Verified Allergy, Mild, Hives, 09/05/17) potassium iodide (Verified Allergy, Mild, Hives, 09/05/17) povidone-iodine (Verified Allergy, Mild, Hives, 09/05/17) sodium iodide (Verified Allergy, Mild, Hives, 09/05/17) adhesive tape (Verified Allergy, Unknown, MUST USE PAPER TAPE, CAUSES REDNESS ALMOST INSTANTLY, 08/04/17) Reported Meds & Prescriptions Reported Meds & Active Scripts Active Commode 3-in-1 (Device) 1 Mis Mis Ea .XX DIRECTED Aspirin Low Dose (Aspirin) 81 Mg Chew 81 Mg CHEW BID 30 Days [place] (Hydrocodone-Acetaminophen) 7.5-325 mg Tab 1-2 Tab PO Q6H PRN Reported Ambien (Zolpidem Tartrate) 10 Mg Tab 10 Mg PO HS PRN Travatan Z Opth Drops (Travoprost) 0.004 % Soln 1 Drop EACH EYE HS Carteolol Opth Drops 1% Soln 1 Drop EACH EYE DAILY Norvasc (Amlodipine Besylate) 5 Mg Tab 5 Mg PO HS Lorazepam 0.5 Mg Tab 0.5 Mg PO DAILY PRN Review of Systems Except as stated in HPI: all other systems reviewed are Neg Physical Exam Narrative GENERAL: Well-developed well-nourished female in no acute distress SKIN: Warm and dry. HEAD: Atraumatic. Normocephalic. EYES: Pupils equal and round. No scleral icterus. No injection or drainage. ENT: No nasal bleeding or discharge. Mucous membranes pink and moist. NECK: Trachea midline. No JVD. CARDIOVASCULAR: Regular rate and rhythm. No murmur appreciated. RESPIRATORY: No accessory muscle use. Clear to auscultation. Breath sounds equal bilaterally. GASTROINTESTINAL: Abdomen soft, non-tender, nondistended. Hepatic and splenic margins not palpable. MUSCULOSKELETAL: The right leg appears slightly shortened in comparison to left. There is pain with range of motion of both legs. There is right lower extremity edema present. There is tenderness to palpation to the right hip. NEUROLOGICAL: Awake and alert. No obvious cranial nerve deficits. Motor grossly within normal limits. Normal speech. PSYCHIATRIC: Appropriate mood and affect; insight and judgment normal. Data Data Last Documented VS Vital Signs Date Time Temp Pulse Resp B/P (MAP) Pulse Ox O2 Delivery O2 Flow Rate FiO2 09/23/17 14:48 18 09/23/17 14:26 102 150/70 (96) 95 Room Air 09/23/17 13:41 97.8 Orders Orders Hip, Uni(Ap&Lat) Wo Ap Pelvis (09/23/17 ) Morphine Inj (Morphine Inj) (09/23/17 14:45) Lorazepam Inj (Ativan Inj) (09/23/17 14:45) Complete Blood Count With Diff (09/23/17 15:28) Basic Metabolic Panel (Bmp) (09/23/17 15:28) Act Partial Throm Time (Ptt) (09/23/17 15:28) Prothrombin Time / Inr (Pt) (09/23/17 15:28) Diet Npo (09/23/17 Dinner) Admit Order (Ed Use Only) (09/23/17 15:28) MDM Medical Decision Making Medical Screen Exam Complete: Yes Emergency Medical Condition: Yes Medical Record Reviewed: Yes Differential Diagnosis Hip dislocation, postoperative pain, fracture Narrative Course X-ray imaging confirms right hip dislocation. I discussed with the orthopedist who placed the hip prosthesis 7 days ago, Dr. Salcedo, who would like the patient admitted to himself, npo, likely surgery for open reduction today. Diagnosis Primary Impression: Hip dislocation, right Admitting Information Admitting Physician Requests: Jerald Davenport Sep 23, 2017 13:51
[2017-09-23 14:26] VITALS: BP 150/70; PULSE 102; RESP 18; O2SAT 95
[2017-09-23] MEDS ORDERED: AMBI10TA PO (14:29)
[2017-09-23] MEDS ORDERED: LORazepam 2 MG/ML VIAL IV PUSH ONE (14:45)
[2017-09-23] MEDS ORDERED: MORPHINE SULFATE 2 MG/ML INJ IV PUSH ONE (14:45)
--- NOTE | 2017-09-23 15:36 | RADRPT ---
EXAM DATE/TIME: 09/23/2017 14:58 [facility] COMPARISON: HIP RIGHT (AP&LAT 2/3VWS) WO AP PELVIS, September 17, 2017, 15:31. INDICATIONS : Right hip pain. MEDICAL HISTORY : Arthritis. SURGICAL HISTORY : Right total hip replacement ENCOUNTER: Initial ACUITY: 1 day PAIN SCORE: 10/10 LOCATION: Right pelvis FINDINGS: There is a right hip arthroplasty in place. The femoral component is displaced cephalad and posterior ly. Osseous structures appear intact. Hardware appears intact without evidence for juan m-component mariana ency. Soft tissues are unremarkable. CONCLUSION: 1. Right hip arthroplasty posterior dislocation without acute fracture or loosening. Alden Clay MD on September 23, 2017 at 15:31 Board Certified Radiologist. This report was verified electronically.
[2017-09-23 16:00] LABS: AUTOMATED NEUTROPHIL # 4.7 TH/MM3 (1.8-7.7); BASOPHIL % 0.5 % (0.0-2.0); EOSINOPHIL # 0.1 TH/MM3 (0-0.4); EOSINOPHIL % 1.5 % (0.0-4.0); HEMATOCRIT 25.2 % (35.0-46.0); HEMOGLOBIN 8.4 GM/DL (11.6-15.3); LYMPH % 21.9 % (9.0-44.0); LYMPHOCYTE # 1.5 TH/MM3 (1.0-4.8); MEAN CELL VOLUME 89.8 FL (80.0-100.0); MEAN CORPUSCULAR HGB CONC 33.4 % (32.0-36.0); MEAN PLATELET VOLUME 9.7 FL (7.0-11.0); MONO % 8.9 % (0.0-8.0); MONOCYTE # 0.6 TH/MM3 (0-0.9); NEUT % 67.2 % (16.0-70.0); PLATELET COUNT 312 TH/MM3 (150-450); RED BLOOD COUNT 2.81 MIL/MM3 (4.00-5.30); RED CELL DISTRIBUTION WIDTH 13.5 % (11.6-17.2); WHITE BLOOD COUNT 6.9 TH/MM3 (4.0-11.0)
[2017-09-23 16:11] LABS: INTERNATIONAL NORMALIZED RATIO 0.9 RATIO; PROTHROMBIN TIME - PATIENT 9.6 SEC (9.8-11.6)
[2017-09-23 16:19] LABS: BICARBONATE 29.6 MEQ/L (21.0-32.0); CREATININE 0.29 MG/DL (0.50-1.00)
[2017-09-23 18:00] VITALS: BP 153/67; PULSE 91; RESP 18; O2SAT 96
[2017-09-23 22:45] VITALS: BP 139/76; PULSE 84; RESP 17; TEMP 97.5; O2SAT 95
[2017-09-23] MEDS ORDERED: ACETAMINOPHEN/HYDROcodone 325 MG/7.5 MG TAB PO PRN (23:00)
[2017-09-23] MEDS ORDERED: ZOLPIDEM TARTRATE 10 MG TAB PO PRN (23:00)
[2017-09-23] MEDS ORDERED: amLODIPine BESYLATE 5 MG TAB PO SCH (23:00)
[2017-09-23] MEDS ORDERED: MORPHINE SULFATE 2 MG/ML INJ IV PRN (23:00)
[2017-09-23] MEDS: ACETAMINOPHEN/HYDROcodone 325 MG/7.5 MG TAB PO PRN (23:36)
[2017-09-24] VITALS (9 sets, daily range): BP systolic 137–160; BP diastolic 67–77; PULSE 75–91; RESP 12–21; TEMP 96–98.3; O2SAT 94–100
[2017-09-24] MEDS ORDERED: CHLORHEXIDINE GLUCONATE 2 % 1 PACK (2 CLOTHS) TOPICAL PRN (05:30)
[2017-09-24] MEDS ORDERED: METOPROLOL TARTRATE 25 MG TAB PO PRN (05:30)
[2017-09-24] MEDS ORDERED: SODIUM CHLORID 0.9% 500 ML IV PRN (05:30)
[2017-09-24] MEDS ORDERED: LACTATED RINGER'S 1000 ML IV PRN (05:30)
[2017-09-24] MEDS: ACETAMINOPHEN/HYDROcodone 325 MG/7.5 MG TAB PO PRN (07:25)
[2017-09-24] MEDS ORDERED: NEOSTIGMINE 5 MG/5 ML SYRINGE IV PUSH ONE (12:00)
[2017-09-24] MEDS ORDERED: GLYCOPYRROLATE 1 MG/5 ML SYRINGE IV PUSH ONE (12:00)
[2017-09-24] MEDS ORDERED: ROCURONIUM INJ 50 MG/5 ML SYRINGE IV PUSH ONE (12:00)
[2017-09-24] MEDS ORDERED: DEXAMETHASONE SOD PHOS 4 MG/ML VIAL IV ONE (12:00)
[2017-09-24] MEDS ORDERED: PHENYLEPH/NS 1000 MCG/10 ML SYR IV ONE (12:00)
[2017-09-24] MEDS ORDERED: PROPOFOL 200 MG/20 ML AMP IV ONE (12:00)
[2017-09-24] MEDS ORDERED: ONDANSETRON HCL 4 MG/2 ML VIAL IV ONE (12:00)
[2017-09-24] MEDS ORDERED: LIDOCAINE HCL 1% PF 5 ML SYRINGE OTHER ONE (12:00)
[2017-09-24] MEDS ORDERED: LACTATED RINGER'S 1000 ML INJ 2,000 ML IV ONE (12:00)
[2017-09-24] MEDS ORDERED: GENTAMICIN SULFATE 80 MG/2 ML VIAL ONE (15:34)
[2017-09-24] MEDS ORDERED: HYDR-3288 PO (16:30)
[2017-09-24] MEDS ORDERED: ASPI81CH6 CHEW (16:31)
[2017-09-24] MEDS ORDERED: ceFAZolin 2 GM PREMIX 50 ML ONE (16:43)
[2017-09-24] MEDS ORDERED: VANCOMYCIN HCL 1000 MG VIAL ONE (16:43)
[2017-09-24] MEDS ORDERED: ONDANSETRON HCL 4 MG/2 ML VIAL IVP PRN (16:45)
[2017-09-24] MEDS ORDERED: diphenhydrAMINE HCL 50 MG/ML VIAL IV PUSH PRN (16:45)
[2017-09-24] MEDS ORDERED: ZOLPIDEM TARTRATE 5 MG TAB PO PRN (16:45)
[2017-09-24] MEDS ORDERED: MORPHINE SULFATE 4 MG/ML INJ IV PUSH PRN (16:45)
[2017-09-24] MEDS ORDERED: Post-op Orders (for Pharmacy) XX ONE (16:45)
[2017-09-24] MEDS ORDERED: BISACODYL 10 MG SUPP RECTAL PRN (16:45)
[2017-09-24] MEDS ORDERED: SODIUM CHLORIDE 0.9% P-ARTICULR SCH (17:00)
[2017-09-24] MEDS: SODIUM CHLOR 0.9% 1000 ML INJ 1,000 ML IV SCH (17:00)
[2017-09-24] MEDS ORDERED: BUPIVACAINE LIPOSO 1.3% P-ARTICULR SCH (17:00)
[2017-09-24 17:50] LABS: HEMATOCRIT 22.4 % (35.0-46.0); HEMOGLOBIN 7.7 GM/DL (11.6-15.3)
--- NOTE | 2017-09-24 18:22 | RADRPT ---
EXAM DATE/TIME: 09/24/2017 17:18 [facility] COMPARISON: HIP RIGHT (AP&LAT 2/3VWS) WO AP PELVIS, September 23, 2017, 14:58. INDICATIONS : Open reduction and revision of right hip. MEDICAL HISTORY : None. SURGICAL HISTORY : None. ENCOUNTER: Subsequent ACUITY: 1 day PAIN SCORE: Non-responsive. LOCATION: Right Hip FINDINGS: There is good position and alignment of the right hip prosthesis. The previously noted joint dislocat ion has been reduced. CONCLUSION: Good position and alignment. Davis Rao MD on September 24, 2017 at 18:19 Board Certified Radiologist. This report was verified electronically.
[2017-09-24] MEDS ORDERED: *morphine SULFATE 8 MG/ML PERIprocedure ONLY ONE ×3 (18:23→19:40)
[2017-09-24] MEDS ORDERED: MIDAZOLAM HCL 2 MG/2 ML VIAL ONE (18:24)
[2017-09-24] MEDS ORDERED: DO NOT ADM ANY ANTICOAGULANT DRUGS PRN (18:45)
--- NOTE | 2017-09-24 19:15 | RADRPT ---
EXAM DATE/TIME: 09/24/2017 18:30 [facility] COMPARISON: HIP RIGHT (AP&LAT 2/3VWS) W AP PELVIS, September 17, 2017, 17:33. INDICATIONS : Status post open reduction and revision of right hip. MEDICAL HISTORY : None. SURGICAL HISTORY : None. ENCOUNTER: Subsequent ACUITY: 1 day PAIN SCORE: Non-responsive. LOCATION: Right Hip FINDINGS: Patient is status post placement of a right hip prosthesis. There is good position and alignment of t he prosthesis and bony structures. The bony structures are grossly intact. Postsurgical changes are p resent. CONCLUSION: Good position and alignment on this postoperative examination. Davis Rao MD on September 24, 2017 at 19:12 Board Certified Radiologist. This report was verified electronically.
[2017-09-24] MEDS ORDERED: NON-FORMULARY DRUG (Travoprost Opth Drops (Travatan Z Opth Drops) 1 DROP) EACH EYE SCH (21:00)
[2017-09-24] MEDS: LORazepam 0.5 MG TAB PO PRN (21:32)
[2017-09-24] MEDS: ZOLPIDEM TARTRATE 10 MG TAB PO PRN (23:18)
[2017-09-24] MEDS: amLODIPine BESYLATE 5 MG TAB PO SCH (23:19)
[2017-09-24] MEDS: ASPIRIN 81 MG CHEW TAB CHEW SCH (23:19)
[2017-09-24] MEDS: LATANOPROST 0.005% OPHT SOLN 2.5 ML BTL EACH EYE SCH (23:23)
[2017-09-24] MEDS: ACETAMINOPHEN/HYDROcodone 325 MG/10 MG TAB PO PRN (23:45)
[2017-09-25] MEDS: ZOLPIDEM TARTRATE 10 MG TAB PO PRN (00:30)
[2017-09-25 05:00] VITALS: BP 140/76; PULSE 86; RESP 18; TEMP 96.7; O2SAT 95
[2017-09-25] MEDS: SODIUM CHLOR 0.9% 1000 ML INJ 1,000 ML IV SCH ×3 (05:12→23:00)
[2017-09-25] MEDS: ACETAMINOPHEN/HYDROcodone 325 MG/10 MG TAB PO PRN ×3 (05:12→17:52)
[2017-09-25 08:00] VITALS: BP 129/73; PULSE 88; RESP 17; TEMP 96.9; O2SAT 94
--- NOTE | 2017-09-25 08:11 | PD.ORT.PN ---
Subjective Post Op Day #: 1 Subjective Remarks just had pain meds, pain under control. Objective Vitals Vital Signs Date Time Temp Pulse Resp B/P (MAP) Pulse Ox O2 Delivery O2 Flow Rate FiO2 09/25/17 05:00 96.7 86 18 140/76 (97) 95 09/24/17 23:50 96.0 88 18 137/75 (95) 94 09/24/17 22:15 97.5 84 17 139/76 (97) 95 09/24/17 21:15 98.2 86 15 145/72 96 09/24/17 20:30 80 15 140/67 (91) 100 Nasal Cannula 2 09/24/17 20:21 97.6 91 13 140/67 99 09/24/17 20:00 83 15 155/76 (102) 100 Nasal Cannula 2 09/24/17 19:31 97.4 86 15 152/72 100 09/24/17 19:30 74 15 152/72 (98) 100 Nasal Cannula 2 09/24/17 19:19 97.4 75 12 149/69 100 09/24/17 19:15 74 15 153/74 (100) 100 Nasal Cannula 2 09/24/17 19:00 79 15 142/70 (94) 100 Nasal Cannula 2 09/24/17 18:45 76 22 158/74 (102) 100 Nasal Cannula 2 09/24/17 18:30 69 22 143/72 (95) 100 Nasal Cannula 2 09/24/17 18:15 70 22 140/72 (94) 100 Nasal Cannula 2 09/24/17 18:14 97.4 72 15 143/72 (95) 100 Nasal Cannula 2 09/24/17 15:38 22 09/24/17 11:34 98.3 88 21 160/74 (102) 96 09/24/17 08:35 20 I/O 09/24/17 09/24/17 09/24/17 09/25/17 09/25/17 09/25/17 07:00 15:00 23:00 07:00 15:00 23:00 Intake Total 720 ml 2590 ml 240 ml Output Total 350 ml 400 ml Balance 720 ml 2240 ml -160 ml Intake Oral 720 ml 480 ml 240 ml IV Total 1300 ml Packed Cells 800 ml Blood Product IV Normal Saline Flush 10 ml Output Urine Total 250 ml 400 ml Estimated Blood Loss 100 ml # Voids 2 # Bowel Movements 1 0 Result Diagram: 09/24/17 1655 09/23/17 1530 Objective Remarks in bed, nad, daughter in room dressing intact, no erythema thigh soft neg homans nvi Assessment & Plan Ortho Post Op Day #: 1 Problem List: Assessment and Plan s/p open reduction of R hip dislocation with revision ANALY POD#1 wbat - total hip precautions ok to maintain dressing unless saturated PT lovenox, d/c on asa81 d/c planning to snf - possibly Friday to [facility] f/up dr. fernandez 2 weeks Ketan Sadler Sep 25, 2017 08:11
--- NOTE | 2017-09-25 08:15 | HHI.DCPOC ---
Discharge Care Plan Diagnosis: (1) Primary localized osteoarthrosis, pelvic region and thigh Your Health Problems Are: Difficulty with ADL Goals to Promote Your Health * To prevent worsening of your condition and complications * To maintain your health at the optimal level Directions to Meet Your Goals Take your medications as prescribed Follow your dietary instruction Follow activity as directed Keep your appointments as scheduled Take your immunizations and boosters as scheduled If your symptoms worsen call your PCP, if no PCP go to Urgent Care Center or Emergency Room Smoking is Dangerous to Your Health. Avoid second hand smoke Call the 24-hour hour crisis hotline for domestic abuse at Ketan Sadler Sep 25, 2017 08:15
[2017-09-25] MEDS ORDERED: [UNRECOGNIZED DRUG - OTHER] EACH EYE SCH (09:00)
[2017-09-25] MEDS ORDERED: [UNRECOGNIZED DRUG - OTHER] EACH EYE SCH (09:00)
[2017-09-25] MEDS: ASPIRIN 81 MG CHEW TAB CHEW SCH ×2 (10:16→20:36)
--- NOTE | 2017-09-25 11:52 | MP ---
cc: SUJATA ESPOSITO DATE OF SURGERY 09/24/2017 PREOPERATIVE DIAGNOSIS Right total hip arthroplasty dislocation. POSTOPERATIVE DIAGNOSIS Right total hip arthroplasty dislocation. PROCEDURE Revision right total hip arthroplasty femoral head with open reduction of dislocation. SURGEON Dr. Sujata Esposito GRANULATOR Jose Sadler PA-C ANESTHESIA General. ESTIMATED BLOOD LOSS 50 cc COMPLICATIONS None. IMPLANTS USED DePuy size 32-mm cobalt chrome head, +5 neck. JUSTIFICATION This patient is a 76-year-old female who has undergone previous anterior approach right total hip arthroplasty. She was discharged from hospital to [facility] and was complaining of right hip pain. She does not note any fall or recollection of the event involving the right hip. An x-ray was performed at [facility] and she was diagnosed right hip dislocation. I was contacted from [facility] and recommended the patient be transferred back to [facility]. X-rays have confirmed evidence of right hip dislocation. I have discussed the findings with the patient and the patient's daughter. We spoke about treatment options. It was my recommendation that the patient return to the operating room for open reduction of her hip dislocation. She does have significant osteoporosis of bone and I had concerns that with forceful closed reduction she might be at risk for fracture or complication. In addition, my plan was to evaluate the stability of her hip in the operating room using fluoroscopic imaging and possibly revise the hip. The patient and the patient's daughter asked appropriate questions which have been answered and they did wish to proceed with surgery as outlined above. PROCEDURE IN DETAIL Written consent was obtained. The patient was identified, taken to the operating room, placed supine on the operating room table. General anesthesia was administered as well as 2 grams of IV Ancef and 1 gram of IV vancomycin. With the patient transferred to [facility] the right and left feet were placed in padded traction boots. All bony prominences and pressure points were well padded. The right hip and right lower extremity were prepped and draped using isopropyl alcohol, Hibiclens solution and DuraPrep solution. After a time-out was performed, a longitudinal incision was made over the anterolateral aspect of right hip and in line with the previous incision. The fascial layer was incised. Dissection was carried over tensor fascia violeta, beneath rectus femoris to allow exposure of the hip itself. The hip appeared to have a superior dislocation. At this point I used a bone tamp to remove the femoral head. There appeared to be capsule that was impinging along the femoral neck and covering the cup, preventing reduction. A 10-blade scalpel was used to excise a portion of the capsule that appeared to be impinging from doing an adequate reduction. At this point I did evaluate different trial head and neck combinations including a 32-mm +1 neck and a 32-mm +5 neck. The +1 neck, 32-mm head showed good stability. I was able to externally rotate the leg 70 degrees and extend it all the way down to the ground without evidence of anterior instability or impingement. I took the foot out of the foot hoskins with the boot and I manipulated the hip in flexion and internal rotation and I was not able to dislocate the hip posteriorly. At this point I dislocated the hip and placed a 32-mm head, +5 neck trial and reduced the hip. There was increased length and increased tightness on soft tissues. Stability felt even better. At this point I elected to lengthen her with a +5 neck, 32-mm cobalt chrome head. I placed a new head, put a bone tamp to impact the head and test for stability along the trunnion. At this point the hip was reduced. Fluoroscopic imaging again confirmed appropriate reduction of the hip and I manipulated the hip to a full range of motion including external rotation to 70 degrees and extension all the way down to the ground without evidence of anterior instability or impingement. The surgical wound was thoroughly irrigated with sterile saline pulse lavage antibiotic impregnated solution. The fascia was closed with #1 Vicryl suture, the subcutaneous layer with 2-0 Vicryl suture and the skin was closed with Dermabond. Sterile dressing applied. The patient tolerate the procedure well, no intraoperative complication noted. Jose Sadler, physician pediatric physical therapy assistant certified, was present during the entire procedure. This included patient positioning and the procedure itseld. The medical necessity of the physician pediatric physical therapy assistant was indicated in this patient due to the complexity of the procedure. He assisted in appropriate manipulation of the hip. He assisted with retraction of muscle, tendon, bone and neurovascular structures. He assisted with both removal and implantation of the new femoral head component. MD MESERET Arellano/BRODERICK /6:08 PM /11:32 AM
[2017-09-25 12:00] VITALS: BP 114/56; PULSE 91; RESP 18; TEMP 97.3; O2SAT 93
--- NOTE | 2017-09-25 14:04 | PD.CONS ---
[facility] By Dr[facility] Salcedo Reason for Consult medical management Primary Care Physician Non-Staff Diagnoses: History of Present Illness Pt is a 76 yr old female w PMHx of breast cancer, HTN, anxiety, glaucoma admitted to the ortho service for revision of the right total hip arthroplasty femoral head with open reduction of dislocation. Patient states that she had a right total hip arthroplasty on September 17 was discharged to rehab however since her surgery she kept having pain which never improved. While at the rehab center, it was noted that she had one leg shorter than the other and had difficulty with therapy. The therapist there knew something was wrong and they called [facility] and emergently brought her back here. Patient currently states that because she has been sitting on the chair for a while her pain now has escalated to a 5 out of 10. She would like to get out of the chair and move around and go back to bed. Denies any nausea or vomiting. Would like to have a stool softener. Denies any chest pain or shortness of breath. She tells me that she has a hard time with blood draws and has refused lab work this morning. Review of Systems Except as stated in HPI: all other systems reviewed are Neg Past Family Social History Allergies: Coded Allergies: diatrizoate meglumine (Verified Allergy, Severe, HIVES, 09/05/17) gadobenic acid (Verified Allergy, Severe, HIVES, 09/05/17) gadodiamide (Verified Allergy, Severe, HIVES, 09/05/17) gadoteridol (Verified Allergy, Severe, HIVES, 09/05/17) iodixanol (Verified Allergy, Severe, HIVES, 09/05/17) iohexol (Verified Allergy, Severe, HIVES, 09/05/17) penicillin G (Verified Allergy, Severe, Hives, 09/05/17) iodine (Verified Allergy, Mild, Hives, 09/05/17) potassium iodide (Verified Allergy, Mild, Hives, 09/05/17) povidone-iodine (Verified Allergy, Mild, Hives, 09/05/17) sodium iodide (Verified Allergy, Mild, Hives, 09/05/17) adhesive tape (Verified Allergy, Unknown, MUST USE PAPER TAPE, CAUSES REDNESS ALMOST INSTANTLY, 08/04/17) Past Medical History Breast cancer, hypertension, anxiety, glaucoma Past Surgical History Right hip arthroplasty, revision of right hip arthroplasty and dislocation. Mastectomy on the right. Lumpectomy and radiation on the right. Hysterectomy and appendectomy. Reported Medications Reported Meds & Active Scripts Active Aspirin Low Dose (Aspirin) 81 Mg Chew 81 Mg CHEW BID 30 Days [place] (Hydrocodone-Acetaminophen) 7.5-325 mg Tab 1-2 Tab PO Q6H PRN Commode 3-in-1 (Device) 1 Mis Mis Ea .XX DIRECTED Aspirin Low Dose (Aspirin) 81 Mg Chew 81 Mg CHEW BID 30 Days [place] (Hydrocodone-Acetaminophen) 7.5-325 mg Tab 1-2 Tab PO Q6H PRN Reported Ambien (Zolpidem Tartrate) 10 Mg Tab 10 Mg PO HS PRN Travatan Z Opth Drops (Travoprost) 0.004 % Soln 1 Drop EACH EYE HS Carteolol Opth Drops 1% Soln 1 Drop EACH EYE DAILY Norvasc (Amlodipine Besylate) 5 Mg Tab 5 Mg PO HS Lorazepam 0.5 Mg Tab 0.5 Mg PO DAILY PRN Family History Mother was very healthy and passive at the age of 94. Father had cancer Social History Smoked a little years ago. Does not elaborate when she quit and how much she smoked. Drinks a glass of wine once a month. Denies illegal drug use Physical Exam Vital Signs Vital Signs Date Time Temp Pulse Resp B/P (MAP) Pulse Ox O2 Delivery O2 Flow Rate FiO2 09/25/17 12:00 97.3 91 18 114/56 (75) 93 09/25/17 08:00 96.9 88 17 129/73 (91) 94 09/25/17 05:00 96.7 86 18 140/76 (97) 95 09/24/17 23:50 96.0 88 18 137/75 (95) 94 09/24/17 22:15 97.5 84 17 139/76 (97) 95 09/24/17 21:15 98.2 86 15 145/72 96 09/24/17 20:30 80 15 140/67 (91) 100 Nasal Cannula 2 09/24/17 20:21 97.6 91 13 140/67 99 09/24/17 20:00 83 15 155/76 (102) 100 Nasal Cannula 2 09/24/17 19:31 97.4 86 15 152/72 100 09/24/17 19:30 74 15 152/72 (98) 100 Nasal Cannula 2 09/24/17 19:19 97.4 75 12 149/69 100 09/24/17 19:15 74 15 153/74 (100) 100 Nasal Cannula 2 09/24/17 19:00 79 15 142/70 (94) 100 Nasal Cannula 2 09/24/17 18:45 76 22 158/74 (102) 100 Nasal Cannula 2 09/24/17 18:30 69 22 143/72 (95) 100 Nasal Cannula 2 09/24/17 18:15 70 22 140/72 (94) 100 Nasal Cannula 2 09/24/17 18:14 97.4 72 15 143/72 (95) 100 Nasal Cannula 2 09/24/17 15:38 22 Physical Exam GENERAL: Elderly female, sitting on recliner. SKIN: No rashes, ecchymoses or lesions. Cool and dry. EYES: Pupils equal round and reactive. Extraocular motions intact. ENT: Nose without drainage. Airway patent. NECK: Trachea midline. CARDIOVASCULAR: Regular rate and rhythm without murmurs RESPIRATORY: Clear to auscultation. Breath sounds equal bilaterally. No wheezes GASTROINTESTINAL: Abdomen soft, non-tender, nondistended.No guarding. MUSCULOSKELETAL: Extremities without edema. Able to move her lower extremities. Pedal pulse present. Sensation intact NEUROLOGICAL: Awake and alert. Normal speech. Laboratory Laboratory Tests Test 09/24/17 16:55 Hemoglobin 7.7 Hematocrit 22.4 Result Diagram: 09/24/17 1655 09/23/17 1530 Imaging Last Impressions Hip and Pelvis X-Ray 09/24/17 0000 Signed Impressions: Service Date/Time: Sunday, September 24, 2017 18:30 - CONCLUSION: Good position and alignment on this postoperative examination. Davis Rao MD Hip X-Ray 09/24/17 0000 Signed Impressions: Service Date/Time: Sunday, September 24, 2017 17:18 - CONCLUSION: Good position and alignment. Davis Rao MD Assessment and Plan Assessment and Plan Revision right total hip arthroplasty femoral head with open reduction of dislocation. Postop day 1. Hemoglobin dropped to 7.7. She received 2 units of packed red blood cells. H&H has been ordered however patient did refuse blood draw this morning. I explained to her the importance of monitoring her hemoglobin. Patient states that she needs a good manager nursing to draw her blood because she tends to get hematomas. Physical therapy, anticoagulation, antibiotics and pain management per orthopedic surgery. Mild hyponatremia: BMP ordered, follow-up. Hypertension: Home meds resumed, blood pressures are stable Anxiety: Home meds resumed Glaucoma: Home med resume DVT prophylaxis: Per orthopedic surgery. Monitor H&H closely Thank you for allowing me to care for Mrs. Morelos, I will continue to follow. Discussed Condition With Patient and RN Macarena Dubois MD Sep 25, 2017 14:04
[2017-09-25 15:23] LABS: BICARBONATE 30.1 MEQ/L (21.0-32.0); CALCIUM 8.9 MG/DL (8.5-10.1); CREATININE 0.43 MG/DL (0.50-1.00)
[2017-09-25 16:00] VITALS: BP 129/61; PULSE 88; RESP 18; TEMP 98.1; O2SAT 93
[2017-09-25 16:20] LABS: HEMATOCRIT 33.5 % (35.0-46.0); HEMOGLOBIN 11.1 GM/DL (11.6-15.3); MEAN CELL VOLUME 88.7 FL (80.0-100.0); MEAN CORPUSCULAR HEMOGLOBIN 29.4 PG (27.0-34.0); MEAN CORPUSCULAR HGB CONC 33.2 % (32.0-36.0); MEAN PLATELET VOLUME 7.7 FL (7.0-11.0); PLATELET COUNT 399 TH/MM3 (150-450); RED BLOOD COUNT 3.78 MIL/MM3 (4.00-5.30); RED CELL DISTRIBUTION WIDTH 14.5 % (11.6-17.2); WHITE BLOOD COUNT 12.6 TH/MM3 (4.0-11.0)
[2017-09-25] MEDS ORDERED: MORPHINE SULFATE 4 MG/ML INJ IV PUSH PRN (17:30)
[2017-09-25] MEDS ORDERED: ZOLPIDEM TARTRATE 5 MG TAB PO PRN (17:30)
[2017-09-25] MEDS ORDERED: ALUMINUM/MAGNESIUM/SIMETH 30 ML CUP PO PRN (17:30)
[2017-09-25] MEDS ORDERED: Post-op Orders (for Pharmacy) XX ONE (17:30)
[2017-09-25] MEDS ORDERED: NALOXONE HCL 0.4 MG/ML AMP IV PUSH PRN (17:30)
[2017-09-25] MEDS ORDERED: ONDANSETRON HCL 4 MG/2 ML VIAL IVP PRN (17:30)
[2017-09-25] MEDS ORDERED: ACETAMINOPHEN/HYDROcodone 325 MG/10 MG TAB PO PRN ×2 (17:30)
--- NOTE | 2017-09-25 18:26 | RADRPT ---
EXAM DATE/TIME: 09/25/2017 18:08 [facility] COMPARISON: HIP RIGHT (AP&LAT 2/3VWS) W AP PELVIS, September 24, 2017, 18:30. INDICATIONS : Follow up post op right hip. MEDICAL HISTORY : None. SURGICAL HISTORY : None. ENCOUNTER: Subsequent ACUITY: 2 days PAIN SCORE: 10/10 LOCATION: Right hip. FINDINGS: There is a right total hip arthroplasty that appears intact and normally aligned. Bony pelvis is inta ct. No acute soft tissue abnormality demonstrated. CONCLUSION: Expected radiographic appearance one day status post right total hip arthroplasty. No acute complicat ion demonstrated. Carlos Pruett MD on September 25, 2017 at 18:22 Board Certified Radiologist. This report was verified electronically.
[2017-09-25] MEDS ORDERED: SODIUM CHLOR 0.9% 1000 ML INJ 1,000 ML IV SCH (19:00)
[2017-09-25] MEDS ORDERED: ENOXAPARIN SODIUM 40 MG/0.4 ML SYRINGE SQ SCH (20:00)
[2017-09-25] MEDS ORDERED: TRANEXAMIC ACID IV SCH (20:00)
[2017-09-25] MEDS ORDERED: SODIUM CHLORIDE 0.9% IV SCH (20:00)
[2017-09-25 20:15] VITALS: BP 136/76; PULSE 106; RESP 18; TEMP 96.4; O2SAT 96
[2017-09-25] MEDS: MULTIVITAMINS/MINERALS THERAPEUTIC TAB PO SCH (20:36)
[2017-09-25] MEDS: DOCUSATE SODIUM 100 MG CAP PO SCH (20:36)
[2017-09-25] MEDS: amLODIPine BESYLATE 5 MG TAB PO SCH (20:36)
[2017-09-25] MEDS: LATANOPROST 0.005% OPHT SOLN 2.5 ML BTL EACH EYE SCH (20:36)
[2017-09-25] MEDS ORDERED: PCA - TOTAL MG MORPHINE DELIVERED PER SHIFT SCH (22:00)
[2017-09-26] MEDS: ACETAMINOPHEN/HYDROcodone 325 MG/10 MG TAB PO PRN ×5 (00:20→16:02)
[2017-09-26 00:40] VITALS: BP 127/75; PULSE 86; RESP 18; TEMP 97.3; O2SAT 97
[2017-09-26 08:00] VITALS: BP 131/77; PULSE 83; RESP 17; TEMP 95.8; O2SAT 94
[2017-09-26] MEDS: SODIUM CHLOR 0.9% 1000 ML INJ 1,000 ML IV SCH (09:00)
[2017-09-26] MEDS: MULTIVITAMINS/MINERALS THERAPEUTIC TAB PO SCH (09:47)
[2017-09-26] MEDS: ASPIRIN 81 MG CHEW TAB CHEW SCH (09:47)
[2017-09-26] MEDS: DOCUSATE SODIUM 100 MG CAP PO SCH (09:47)
--- NOTE | 2017-09-26 10:20 | HHI.PR ---
Subjective Remarks Patient was working with physical therapy when I evaluated her. It was noted that her right lower extremity is more swollen compared to the left. Patient states when she elevated the swelling goes down. She is frustrated that she is not allowed to elevate leg when she is sitting on the recliner. Patient tells me as well that her daughter was taken to the emergency room because she was throwing up. Otherwise, patient has no complaints. Pain is controlled. Otherwise, no chest pain, shortness of breath, nausea or vomiting. Objective Vitals Vital Signs Date Time Temp Pulse Resp B/P (MAP) Pulse Ox O2 Delivery O2 Flow Rate FiO2 09/26/17 08:00 95.8 83 17 131/77 (95) 94 09/26/17 00:40 97.3 86 18 127/75 (92) 97 09/25/17 20:15 96.4 106 18 136/76 (96) 96 09/25/17 16:00 98.1 88 18 129/61 (83) 93 09/25/17 12:00 97.3 91 18 114/56 (75) 93 I/O 09/25/17 09/25/17 09/25/17 09/26/17 09/26/17 09/26/17 07:00 15:00 23:00 07:00 15:00 23:00 Intake Total 240 ml 480 ml 240 ml 240 ml Output Total 400 ml Balance -160 ml 480 ml 240 ml 240 ml Intake Oral 240 ml 480 ml 240 ml 240 ml Output Urine Total 400 ml # Voids 2 2 2 # Bowel Movements 0 1 0 0 Result Diagram: 09/25/17 1556 09/25/17 1449 Imaging Last Impressions Hip and Pelvis X-Ray 09/25/17 0000 Signed Impressions: Service Date/Time: September 18:08 - CONCLUSION: Expected radiographic appearance one day status post right total hip arthroplasty. No acute complication demonstrated. Carlos Pruett MD Hip X-Ray 09/24/17 0000 Signed Impressions: Service Date/Time: Sunday, September 24, 2017 17:18 - CONCLUSION: Good position and alignment. Davis Rao MD Objective Remarks GENERAL: Elderly female, sitting on wheelchair EYES: Extraocular motions intact. CARDIOVASCULAR: Regular rate and rhythm without murmurs RESPIRATORY: Clear to auscultation. Breath sounds equal bilaterally. No wheezes GASTROINTESTINAL: Abdomen soft, non-tender, nondistended.No guarding. MUSCULOSKELETAL: right lower ext does look larger than the left. no calf tenderness, no erythema. Able to move her lower extremities. Pedal pulse present. Sensation intact NEUROLOGICAL: Awake and alert. Normal speech. A/P Assessment and Plan Revision right total hip arthroplasty femoral head with open reduction of dislocation. Postop day 2. Hemoglobin dropped to 7.7 and she received 2 units of packed red blood cells. Hb 11.1 yesterday. Physical therapy, anticoagulation, antibiotics and pain management per orthopedic surgery. continue to monitor H&H Right lower ext swelling: check u/s to r/o DVT. Mild hyponatremia: BMP ordered, follow-up. Hypertension: Home meds resumed, blood pressures are stable Anxiety: Home meds resumed Glaucoma: Home med resume DVT prophylaxis: on lovenox per ortho Monitor H&H closely Discharge Planning f/u us of right lower ext Macarena Dubois MD Sep 26, 2017 10:20
--- NOTE | 2017-09-26 11:20 | PD.ORT.PN ---
Subjective Post Op Day #: 2 Subjective Remarks pain improving. doing more with PT. Of note, her daughter was vomiting this morning and was taken to the ER. Objective Vitals Vital Signs Date Time Temp Pulse Resp B/P (MAP) Pulse Ox O2 Delivery O2 Flow Rate FiO2 09/26/17 08:00 95.8 83 17 131/77 (95) 94 09/26/17 00:40 97.3 86 18 127/75 (92) 97 09/25/17 20:15 96.4 106 18 136/76 (96) 96 09/25/17 16:00 98.1 88 18 129/61 (83) 93 09/25/17 12:00 97.3 91 18 114/56 (75) 93 I/O 09/25/17 09/25/17 09/25/17 09/26/17 09/26/17 09/26/17 07:00 15:00 23:00 07:00 15:00 23:00 Intake Total 240 ml 480 ml 240 ml 240 ml Output Total 400 ml Balance -160 ml 480 ml 240 ml 240 ml Intake Oral 240 ml 480 ml 240 ml 240 ml Output Urine Total 400 ml # Voids 2 2 2 # Bowel Movements 0 1 0 0 Result Diagram: 09/25/17 1556 09/25/17 1449 Objective Remarks in bed, nad incision no erythema, no drainage thigh soft swelling RLE neg homans nvi Assessment & Plan Ortho Post Op Day #: 2 Problem List: Assessment and Plan s/p open reduction of R hip dislocation with revision ANALY POD#1 wbat - total hip precautions daily dressing changes PT US RLE CKS to RLE while in bed, ok to use CKS instead of wedge lovenox, d/c on [id number] d/c planning to snf - cleared if does well in PT and has BM f/up dr. fernandez 2 weeks Ketan Sadler Sep 26, 2017 11:20
[2017-09-26 12:00] VITALS: BP 133/76; PULSE 85; RESP 18; TEMP 96.5; O2SAT 95
--- NOTE | 2017-09-26 12:19 | RADRPT ---
EXAM DATE/TIME: 09/26/2017 11:33 [facility] COMPARISON: No previous studies available for comparison. EXTERNAL COMPARISON : [facility], Ultrasound left leg, October 06, 2013 INDICATIONS : Right leg swelling. Post right hip replacement. MEDICAL HISTORY : SC. Hypertension. Diverticulitis. IBS. Scoliosis. SURGICAL HISTORY : Right breast mastectomy. Hysterectomy. Back surgery. Rib resection. Right total hip. ENCOUNTER: Initial ACUITY: 1 day PAIN SCORE: 7/10 LOCATION: Right leg. TECHNIQUE: Venous ultrasound of the leg was performed from the inguinal ligament to the proximal calf. Real-chika e, color Doppler and spectral tracing, compression and augmentation techniques were used. FINDINGS: There is normal compressibility of the deep venous system from the inguinal region to the proximal ca lf. No echogenic clot is seen in the lumen of the common femoral, femoral, popliteal, and posterior tibial veins. There is a normal response of the venous system to proximal and distal augmentation an d respiration. CONCLUSION: No DVT right leg. Edematous right lower extremity. Gautam Martin MD on September 26, 2017 at 12:17 Board Certified Radiologist. This report was verified electronically.
[2017-09-26 16:00] VITALS: BP 134/72; PULSE 83; RESP 18; TEMP 96.7; O2SAT 93
[2017-09-26] MEDS: LORazepam 0.5 MG TAB PO PRN (16:02)
[2017-09-26] MEDS ORDERED: MULTIVITAMINS/MINERALS THERAPEUTIC TAB PO SCH (21:00)
[2017-09-26] MEDS ORDERED: DOCUSATE SODIUM 100 MG CAP PO SCH (21:00)
== END 2017-09-26 17:19 | DRG 467 ==
LOC: NEPE 13:31 → NEDA 15:29 → NEPFCDU 19:58 → N06B 09-24 15:35 → OBSVTOIN 09-25 17:30
PROVIDERS: ADMIT Orthopaedic Surgery Sports Medicine; ATTEND Orthopaedic Surgery Sports Medicine
PROC: 30233N1 Transfusion of Nonautologous Red Blood Cells into Peripheral Vein, Percutaneous Approach (ICD-10-PCS; 2017-09-24)
PROC: 0SWR0JZ Revision of Synthetic Substitute in Right Hip Joint, Femoral Surface, Open Approach (ICD-10-PCS; principal; 2017-09-24 16:34)
DX: T84.020A Dislocation of internal right hip prosthesis, initial encounter (principal); E87.1 Hypo-osmolality and hyponatremia; I10 Essential (primary) hypertension; F41.9 Anxiety disorder, unspecified; H40.9 Unspecified glaucoma; M79.89 Other specified soft tissue disorders; M81.0 Age-related osteoporosis without current pathological fracture; Z85.3 Personal history of malignant neoplasm of breast; Z90.11 Acquired absence of right breast and nipple; Z90.710 Acquired absence of both cervix and uterus; Z92.3 Personal history of irradiation; Y79.2 Prosthetic and other implants, materials and accessory orthopedic devices associated with adverse incidents
CPT/HCPCS: 36430; 73502; 76000; 80048; 85014; 85018; 85025; 85027; 85610; 85730; 86850; 86900; 86901; 86920; 93971; 94150; 96365; 96375; 96376; C1776; G0378; G8987-GP; G8988-GP; J0690; J1100; J1580; J1650; J2060; J2250; J2270; J2370; J2405; J2710; J3010; J3370; J7030; J7120; L1830; P9016